=== PATIENT | female | born 1935 | race Caucasian/White ===

== ENCOUNTER → 2016-07-24 | Outpatient (CLI) | payer OTHER ==
[2014-12-19 10:35] VITALS: BP 145/72
[~2016-07-24] MED LIST: CALCIUM PO; DABI150C PO; DILT240C66 PO; LEVO75TA5 PO; LISI-334 PO; MENT118G TP; MULT-245 PO
--- NOTE | 2016-07-24 12:16 | RAD ---
DATE: 07/24/2016 EXAM: DIGITAL SCREEN BILAT W/CAD HISTORY: Routine screening COMPARISON: 08/02/2015, 06/12/2012, 05/09/2009 This study was interpreted with the benefit of Computerized Aided Detection (CAD). FINDINGS: There are scattered fibroglandular densities in the breasts. A marker from a previous breast biopsies again noted laterally on the left. No new or enlarging breast densities are seen. There are benign type calcifications in the breasts. There is a cluster of microcalcifications in the posterior aspect of the right breast located just superior to the midline. These have developed since 1999 and and appear to have increased in number over the interval. IMPRESSION: Right breast microcalcifications as described above. Diagnostic mammography to include magnification and straight medial lateral views is suggested for further evaluation. BI-RADS CATEGORY: 0 INCOMPLETE: NEEDS ADDITIONAL IMAGING EVALUATION AND/OR PRIOR MAMMOGRAMS FOR COMPARISON. RECOMMENDED FOLLOW-UP: ADD ADDITIONAL IMAGING PQRS compliance statement: Patient information was entered into a reminder system with a target due date for the next mammogram. Mammography is a sensitive method for finding small breast cancers, but it does not detect them all and is not a substitute for careful clinical examination. A negative mammogram does not negate a clinically suspicious finding and should not result in delay in biopsying a clinically suspicious abnormality. "Our facility is accredited by the [employer] Mammography [employer]."
== END | disposition home or self-care (01) ==
LOC: MAMMO 10:07
PROVIDERS: ATTEND Family Medicine
DX: Z12.31 Encounter for screening mammogram for malignant neoplasm of breast (principal)
CPT/HCPCS: G0202; 77067

== ENCOUNTER → 2016-07-31 | Outpatient (CLI) | payer OTHER ==
[2014-12-19 10:35] VITALS: BP 145/72
[~2016-07-31] MED LIST changes: +CHOL10002 PO; +DIGO125T10 PO; +RIVA15TA PO; +occuvite PO
--- NOTE | 2016-07-31 10:58 | RAD ---
DATE: 07/31/2016 EXAM: DIGITAL DIAGNOSTIC RT HISTORY: Suspicious screening study COMPARISON: 07/24/2016, 08/02/2015, 07/02/2013 This study was interpreted with the benefit of Computerized Aided Detection (CAD). FINDINGS: Additional views of the right breast confirm the presence of a cluster of pleomorphic microcalcifications in the posterior aspect of the right breast at approximately the 12:00 location. These are best delineated on the CC magnification view. These occur in a somewhat linear orientation. They did not appear to be related to an artery. They do not show layering on the straight mediolateral view. These have slowly progressed since previous studies. DCIS is a possibility. IMPRESSION: Suspicious cluster of right breast microcalcifications as described above. Stereotactic biopsy is suggested for further evaluation. BI-RADS CATEGORY: 4 SUSPICIOUS ABNORMALITY- BIOPSY SHOULD BE CONSIDERED RECOMMENDED FOLLOW-UP: BIO BIOPSY RECOMMENDED Note: The findings were discussed with the patient at the time of the exam and she is aware of the recommendation for biopsy. PQRS compliance statement: Patient information was entered into a reminder system with a target due date for the next mammogram. Mammography is a sensitive method for finding small breast cancers, but it does not detect them all and is not a substitute for careful clinical examination. A negative mammogram does not negate a clinically suspicious finding and should not result in delay in biopsying a clinically suspicious abnormality. "Our facility is accredited by the [employer] Mammography Program."
== END | disposition home or self-care (01) ==
LOC: MAMMO 10:23
PROVIDERS: ATTEND Family Medicine
DX: R92.8 Other abnormal and inconclusive findings on diagnostic imaging of breast (principal)
CPT/HCPCS: G0206; 77065

== ENCOUNTER → 2016-08-14 | Outpatient (CLI) | payer OTHER ==
[~2016-08-14] VITALS: Ht 157.5 cm; Wt 56.2 kg
[~2016-08-14] MED LIST changes: +LIDOCAINE 1% / SOD BICARB 8.4% 20 ML VIAL. IJ ONE; +LIDOCAINE 2%/EPI 1:100,000 20 ML VIAL. IJ ONE
[2016-08-14 08:38] VITALS: BP 172/79
--- NOTE | 2016-08-19 08:37 | PATHOLOGY ---
PATHOLOGY REPORT * * * * * * * * FINAL DIAGNOSIS: Breast tissue, right, core needle biopsy: - Fibroadenomatoid change with coarse calcifications. - No evidence of atypia or malignancy. (Please see comment) COMMENT: The case is co-reviewed with Dr. Meseret Gordon, who agrees with the diagnosis. (SKM:mark; d/t: 08/16/2016) REPORT ELECTRONICALLY SIGNED BY: Rosa Woodruff M.D. DATE/TIME: 08/19/2016 08:36 * * * * * * * * GROSS PATHOLOGY: Received in formalin labeled "Gaurav Corona, right breast tissue," are multiple needle cores of yellow-rosa fibrofatty tissue measuring 1.7 x 1.6 x 0.7 cm in aggregate dimensions. Also received is a plastic cassette containing multiple cores of yellow-rosa fibrofatty tissue measuring 2.3 x 1.2 x 0.6 cm in aggregate dimensions. The tissue in the cassette is transferred to cassette A1, and the remaining tissue is submitted in its entirety in cassette A2. The cold ischemic time is 9 minutes. The total formalin fixation time is 35 hours and 35 minutes. (KAH; 08/15/2016) INITIAL CPT CODE(S): A; 69505 Professional services performed [place] [facility] [address] Technical services performed by [facility] at [address] [place] [address]. SPECIMEN(S) RECEIVED: A.Right breast tissue CLINICAL HISTORY: Abnormal mammogram, calcifications PATIENT: GAURAV CORONA /AGE: 6 1935 (Age: 80) PATIENT #: [id number] ALT CASE #: SPECIMEN COLLECTION DATE: 08/14/2016 SPECIMEN RECEIVED DATE: 08/14/2016 [facility] - [address] [place] [address] - PHONE: [phone] * * * END OF REPORT * * *
== END | disposition home or self-care (01) ==
LOC: MAMMO 08:22
PROVIDERS: ATTEND Family Medicine
DX: R92.8 Other abnormal and inconclusive findings on diagnostic imaging of breast (principal)
CPT/HCPCS: 19085; 77022; C1713; G0206; J3490; 88305; 77065

== ENCOUNTER 2017-07-22 14:17 | Inpatient (IN) | payer OTHER ==
[2017-07-22 15:04] LABS: ADD MAN DIFF? NO
[2017-07-22 15:06] LABS: BASO % 0 % (0-3); EOS % 0 % (0-3); HEMATOCRIT 46.5 % (36.0-47.0); HEMOGLOBIN 15.7 g/dL (12.0-15.5); LYMPH # 1.1 x10^3/uL (1.0-4.8); LYMPH % 12 % (24-48); MEAN CORPUSCULAR HEMOGLOBIN 32 pg (25-35); MEAN CORPUSCULAR HGB CONC 34 g/dL (31-37); MEAN CORPUSCULAR VOLUME 95 fL (79-100); MONO # 0.5 x10^3/uL (0.0-1.1); MONO % 5 % (0-9); NEUT # 7.6 x10^3uL (1.8-7.7); NEUT % 83 % (31-73); PLATELET COUNT 160 x10^3/uL (140-400); RED BLOOD COUNT 4.92 x10^6/uL (3.50-5.40); RED CELL DISTRIBUTION WIDTH 13.8 % (11.5-14.5); WHITE BLOOD COUNT 9.2 x10^3/uL (4.0-11.0)
[2017-07-22 15:17] LABS: ANION GAP 12 (6-14); BLOOD UREA NITROGEN 18 mg/dL (7-20); BUN/CREATININE RATIO 20 (6-20); CARBON DIOXIDE 24 mmol/L (21-32); CHLORIDE 101 mmol/L (98-107); CREATININE 0.9 mg/dL (0.6-1.0); GFR 59.8; GLUCOSE 118 mg/dL (70-99); POTASSIUM 4.5 mmol/L (3.5-5.1); SODIUM 137 mmol/L (136-145)
[2017-07-22 15:22] LABS: INR 1.1 (0.8-1.1); PARTIAL THROMBOPLASTIN TIME 25 SEC (24-38); PROTHROMBIN TIME PATIENT 13.7 SEC (11.7-14.0)
[2017-07-22 15:23] LABS: ALBUMIN 4.2 g/dL (3.4-5.0); ALK PHOS 84 U/L (46-116); ALT (SGPT) 24 U/L (14-59); AST (SGOT) 26 U/L (15-37); MAGNESIUM 1.7 mg/dL (1.8-2.4); TOTAL BILIRUBIN 0.7 mg/dL (0.2-1.0); TOTAL PROTEIN 8.4 g/dL (6.4-8.2)
[2017-07-22 15:26] LABS: TROPONINI < 0.017 ng/mL (0.000-0.055)
[2017-07-22 15:28] LABS: NT-PRO BNP 811 pg/mL (0-449)
[2017-07-22 15:29] LABS: BILIRUBIN,URINE NEGATIVE (NEG); CLARITY,URINE CLEAR; COLOR,URINE YELLOW; GLUCOSE,URINE NEGATIVE (NEG); NITRITE,URINE POSITIVE (NEG); PH,URINE 5.5; PROTEIN,URINE NEGATIVE (NEG-TRACE); UROBILINOGEN,URINE 0.2 mg/dL (0.2 mg/dL)
[2017-07-22 15:37] LABS: BACTERIA,URINE MANY /HPF (0-FEW); RBC,URINE RARE /HPF (0-2); SQUAMOUS EPITHELIAL CELL,UR FEW /LPF; WBC,URINE 20-40 /HPF (0-4)
[2017-07-22] MEDS: MAGNESIUM OXIDE 400 MG TABLET PO (15:38)
[2017-07-22] MEDS ORDERED: ONDANSETRON PF 4 MG/2 ML VIAL. IV ×2 (15:45→16:00)
[2017-07-22] MEDS ORDERED: fentaNYL PF VIAL 100 MCG/2 ML VIAL IV (15:45)
[2017-07-22] MEDS ORDERED: ACETAMINOPHEN 500 MG TABLET PO (16:00)
[2017-07-22] MEDS: RIVAROXABAN 15 MG TABLET. PO ×2 (17:00→20:56)
[2017-07-22 17:17] LABS: THYROID STIM HORMONE (TSH) 0.855 uIU/mL (0.358-3.74)
[2017-07-22 17:17] LABS: FREE T4 1.34 ng/dL (0.76-1.46)
[2017-07-22] MEDS ORDERED: ANTI-COAG MONITOR BY PHARMACY. MC (17:30)
[2017-07-22 18:56] LABS: TROPONINI < 0.017 ng/mL (0.000-0.055)
[2017-07-22] MEDS: IBUPROFEN 400 MG TABLET. PO (20:55)
[2017-07-22 22:19] LABS: TROPONINI < 0.017 ng/mL (0.000-0.055)
[2017-07-23 05:39] LABS: ADD MAN DIFF? NO
[2017-07-23 05:47] LABS: BASO % 0 % (0-3); EOS % 1 % (0-3); HEMATOCRIT 40.1 % (36.0-47.0); HEMOGLOBIN 13.7 g/dL (12.0-15.5); LYMPH # 2.1 x10^3/uL (1.0-4.8); LYMPH % 45 % (24-48); MEAN CORPUSCULAR HEMOGLOBIN 32 pg (25-35); MEAN CORPUSCULAR HGB CONC 34 g/dL (31-37); MEAN CORPUSCULAR VOLUME 95 fL (79-100); MONO # 0.5 x10^3/uL (0.0-1.1); MONO % 10 % (0-9); NEUT # 2.1 x10^3uL (1.8-7.7); NEUT % 44 % (31-73); PLATELET COUNT 138 x10^3/uL (140-400); RED BLOOD COUNT 4.23 x10^6/uL (3.50-5.40); RED CELL DISTRIBUTION WIDTH 13.6 % (11.5-14.5); WHITE BLOOD COUNT 4.7 x10^3/uL (4.0-11.0)
[2017-07-23 06:05] LABS: ANION GAP 6 (6-14); BLOOD UREA NITROGEN 16 mg/dL (7-20); CALCIUM 9.1 mg/dL (8.5-10.1); CARBON DIOXIDE 26 mmol/L (21-32); CHLORIDE 107 mmol/L (98-107); GLUCOSE 87 mg/dL (70-99); POTASSIUM 4.2 mmol/L (3.5-5.1); SODIUM 139 mmol/L (136-145)
[2017-07-23] MEDS: LEVOTHYROXINE 75 MCG TABLET PO (07:30)
[2017-07-23] MEDS: CALCIUM CARBONATE 500 MG TABLET PO (07:32)
[2017-07-23] MEDS: MULTIVITAMIN I-VITE TABLET. PO (07:32)
[2017-07-23] MEDS: CHOLECALCIFEROL (VITAMIN D3) 1,000 UNIT TABLET PO (07:32)
[2017-07-23] MEDS: PNEUMOC CONJ VACC 23-VALENT 0.5 ML VIAL. VAX IM (08:11)
[2017-07-23] MEDS: DIGOXIN 125 MCG TABLET. PO (08:12)
[2017-07-23] MEDS: LISINOPRIL 20 MG TABLET PO (08:12)
[2017-07-23] MEDS: APIXABAN 2.5 MG TABLET. PO (10:56)
[2017-07-23 11:12] LABS: CHOLESTEROL 136 mg/dL (0-200); HDLC 43 mg/dL (40-60); LDLC 78 mg/dL (0-100); NON-HDL CHOLESTEROL 93 mg/dL (0-129); TRIGLYCERIDES 73 mg/dL (0-150); VLDLC 15 mg/dL (0-40)
[2017-07-23 11:15] LABS: CHOLESTEROL/HDL RATIO 3.2
[2017-07-23] MEDS: MAGNESIUM SULFATE 2GM 50 ML IV (14:02)
[2017-07-23] MEDS ORDERED: cefTRIAXone IV Push 1 GM VIAL. IVP (16:00)
== END 2017-07-23 16:57 | disposition home or self-care (01) | DRG 690 ==
LOC: ER 14:17 → 5 SOUTH 15:42
DX: N39.0 Urinary tract infection, site not specified (principal); I48.2 Chronic atrial fibrillation; R07.89 Other chest pain; E89.0 Postprocedural hypothyroidism; F41.9 Anxiety disorder, unspecified; M19.90 Unspecified osteoarthritis, unspecified site; I10 Essential (primary) hypertension; Z82.49 Family history of ischemic heart disease and other diseases of the circulatory system; Z90.710 Acquired absence of both cervix and uterus; Z90.49 Acquired absence of other specified parts of digestive tract; Z87.440 Personal history of urinary (tract) infections; Z98.49 Cataract extraction status, unspecified eye
CPT/HCPCS: 36415; 71045; 80048; 80053; 80061; 80162; 81001; 83735; 83880; 84439; 84443; 84481; 84484; 85025; 85610; 85730; 87086; 90732; 93005; 93306; J0690; J3475

== ENCOUNTER 2017-07-30 22:43 | Observation (INO) | payer OTHER ==
[2017-07-30 23:26] LABS: ADD MAN DIFF? NO
[2017-07-30 23:28] LABS: BASO % 1 % (0-3); EOS # 0.1 x10^3/uL (0.0-0.7); EOS % 1 % (0-3); HEMATOCRIT 42.6 % (36.0-47.0); HEMOGLOBIN 14.7 g/dL (12.0-15.5); LYMPH % 29 % (24-48); MEAN CORPUSCULAR HEMOGLOBIN 33 pg (25-35); MEAN CORPUSCULAR HGB CONC 35 g/dL (31-37); MEAN CORPUSCULAR VOLUME 96 fL (79-100); MONO # 0.8 x10^3/uL (0.0-1.1); MONO % 11 % (0-9); NEUT % 58 % (31-73); PLATELET COUNT 175 x10^3/uL (140-400); RED BLOOD COUNT 4.46 x10^6/uL (3.50-5.40); RED CELL DISTRIBUTION WIDTH 13.3 % (11.5-14.5); WHITE BLOOD COUNT 6.9 x10^3/uL (4.0-11.0)
[2017-07-30] MEDS ORDERED: fentaNYL PF VIAL 100 MCG/2 ML VIAL IV ×2 (23:30→23:45)
[2017-07-30 23:37] LABS: ANION GAP 10 (6-14); BLOOD UREA NITROGEN 20 mg/dL (7-20); BUN/CREATININE RATIO 17 (6-20); CALCIUM 9.4 mg/dL (8.5-10.1); CARBON DIOXIDE 27 mmol/L (21-32); CHLORIDE 103 mmol/L (98-107); CREATININE 1.2 mg/dL (0.6-1.0); GFR 42.9; GLUCOSE 114 mg/dL (70-99); INR 1.2 (0.8-1.1); POTASSIUM 4.4 mmol/L (3.5-5.1); PROTHROMBIN TIME PATIENT 14.6 SEC (11.7-14.0); SODIUM 140 mmol/L (136-145)
[2017-07-30 23:43] LABS: ALK PHOS 92 U/L (46-116); ALT (SGPT) 31 U/L (14-59); AST (SGOT) 22 U/L (15-37); LIPASE 390 U/L (73-393); MAGNESIUM 1.7 mg/dL (1.8-2.4); TOTAL BILIRUBIN 0.3 mg/dL (0.2-1.0); TOTAL PROTEIN 8.1 g/dL (6.4-8.2)
[2017-07-30] MEDS: IV NORMAL SALINE 1000ML BAG 1,000 ML IV ×2 (23:43→23:45)
[2017-07-30 23:45] LABS: TROPONINI < 0.017 ng/mL (0.000-0.055)
[2017-07-30] MEDS: ONDANSETRON PF 4 MG/2 ML VIAL. IV (23:45)
[2017-07-30] MEDS ORDERED: ONDANSETRON PF 4 MG/2 ML VIAL. IV (23:45)
[2017-07-30] MEDS ORDERED: ACETAMINOPHEN 325 MG TABLET. PO (23:45)
[2017-07-30] MEDS: ASPIRIN CHEWABLE 81 MG TABLET. PO (23:45)
[2017-07-30 23:53] LABS: CREATINE KINASE 61 U/L (26-192)
[2017-07-30 23:53] LABS: NT-PRO BNP 768 pg/mL (0-449)
[2017-07-31 00:18] LABS: BILIRUBIN,URINE NEGATIVE (NEG); CLARITY,URINE CLEAR; COLOR,URINE YELLOW; GLUCOSE,URINE NEGATIVE (NEG); NITRITE,URINE NEGATIVE (NEG); PROTEIN,URINE NEGATIVE (NEG-TRACE); UROBILINOGEN,URINE 0.2 mg/dL (0.2 mg/dL)
[2017-07-31 00:29] LABS: BACTERIA,URINE 0 /HPF (0-FEW); RBC,URINE OCC /HPF (0-2); SQUAMOUS EPITHELIAL CELL,UR FEW /LPF; WBC,URINE OCC /HPF (0-4)
[2017-07-31 04:11] LABS: ADD MAN DIFF? NO
[2017-07-31 04:40] LABS: BASO % 1 % (0-3); EOS # 0.1 x10^3/uL (0.0-0.7); EOS % 1 % (0-3); HEMATOCRIT 37.8 % (36.0-47.0); HEMOGLOBIN 12.9 g/dL (12.0-15.5); LYMPH # 1.6 x10^3/uL (1.0-4.8); LYMPH % 27 % (24-48); MEAN CORPUSCULAR HEMOGLOBIN 32 pg (25-35); MEAN CORPUSCULAR HGB CONC 34 g/dL (31-37); MEAN CORPUSCULAR VOLUME 95 fL (79-100); MONO # 0.7 x10^3/uL (0.0-1.1); MONO % 12 % (0-9); NEUT # 3.6 x10^3uL (1.8-7.7); NEUT % 59 % (31-73); PLATELET COUNT 154 x10^3/uL (140-400); RED BLOOD COUNT 3.98 x10^6/uL (3.50-5.40); RED CELL DISTRIBUTION WIDTH 13.4 % (11.5-14.5)
[2017-07-31 04:42] LABS: ANION GAP 8 (6-14); BLOOD UREA NITROGEN 17 mg/dL (7-20); CALCIUM 9.2 mg/dL (8.5-10.1); CARBON DIOXIDE 28 mmol/L (21-32); CHLORIDE 106 mmol/L (98-107); GLUCOSE 101 mg/dL (70-99); POTASSIUM 4.4 mmol/L (3.5-5.1); SODIUM 142 mmol/L (136-145)
[2017-07-31 05:03] LABS: TROPONINI < 0.017 ng/mL (0.000-0.055)
[2017-07-31 06:26] LABS: TROPONINI < 0.017 ng/mL (0.000-0.055)
[2017-07-31] MEDS: IV NORMAL SALINE 1000ML BAG 1,000 ML IV (08:55)
[2017-07-31] MEDS: NITROGLYCERIN SUBLINGUAL 0.4 MG BOTTLE OF 25. SL (08:55)
[2017-07-31] MEDS: APIXABAN 5 MG TABLET. PO (10:22)
[2017-07-31] MEDS ORDERED: ANTI-COAG MONITOR BY PHARMACY. MC (10:30)
[2017-07-31] MEDS: REGADENOSON 0.4 MG/5 ML DISP.SYRIN. IV (13:14)
[2017-07-31] MEDS: LISINOPRIL 20 MG TABLET PO (15:06)
[2017-07-31] MEDS: DIGOXIN 125 MCG TABLET. PO (15:06)
== END 2017-07-31 18:40 | disposition home or self-care (01) ==
LOC: 2 SOUTH 23:22 → ER 22:43
DX: R07.89 Other chest pain (principal); E03.9 Hypothyroidism, unspecified; I48.2 Chronic atrial fibrillation; I10 Essential (primary) hypertension; F41.9 Anxiety disorder, unspecified
CPT/HCPCS: 36415; 71045; 78452; 80048; 80053; 81001; 82553; 83690; 83735; 83880; 84484; 85025; 85610; 93005; 93017; 96360; 96361; 96374; 96375; 96376; 99285; A9500; G0378; G0379; J2785; J7030

== ENCOUNTER → 2017-09-17 | Outpatient (CLI) | payer OTHER | END | disposition home or self-care (01) | LOC: RAD 12:00 | DX: M79.602 Pain in left arm (principal); M54.9 Dorsalgia, unspecified; Z95.0 Presence of cardiac pacemaker | CPT/HCPCS: 71046 ==

== ENCOUNTER 2017-09-23 11:12 | Observation (INO) | payer OTHER ==
[2017-09-23 11:41] LABS: ADD MAN DIFF? NO
[2017-09-23 11:44] LABS: BASO # 0.1 x10^3/uL (0.0-0.2); BASO % 1 % (0-3); EOS # 0.1 x10^3/uL (0.0-0.7); EOS % 1 % (0-3); HEMATOCRIT 44.5 % (36.0-47.0); HEMOGLOBIN 15.5 g/dL (12.0-15.5); LYMPH # 1.6 x10^3/uL (1.0-4.8); LYMPH % 20 % (24-48); MEAN CORPUSCULAR HEMOGLOBIN 33 pg (25-35); MEAN CORPUSCULAR HGB CONC 35 g/dL (31-37); MEAN CORPUSCULAR VOLUME 96 fL (79-100); MONO # 0.6 x10^3/uL (0.0-1.1); MONO % 7 % (0-9); NEUT % 72 % (31-73); PLATELET COUNT 183 x10^3/uL (140-400); RED BLOOD COUNT 4.63 x10^6/uL (3.50-5.40); RED CELL DISTRIBUTION WIDTH 13.5 % (11.5-14.5); WHITE BLOOD COUNT 8.3 x10^3/uL (4.0-11.0)
[2017-09-23 11:54] LABS: ANION GAP 9 (6-14); BLOOD UREA NITROGEN 17 mg/dL (7-20); CALCIUM 10.5 mg/dL (8.5-10.1); CARBON DIOXIDE 27 mmol/L (21-32); CHLORIDE 101 mmol/L (98-107); CREATININE 0.9 mg/dL (0.6-1.0); GFR 59.8; GLUCOSE 114 mg/dL (70-99); SODIUM 137 mmol/L (136-145)
[2017-09-23 11:57] LABS: INR 1.3 (0.8-1.1); PARTIAL THROMBOPLASTIN TIME 30 SEC (24-38); PROTHROMBIN TIME PATIENT 15.4 SEC (11.7-14.0)
[2017-09-23 12:01] LABS: ALBUMIN 4.3 g/dL (3.4-5.0); ALK PHOS 82 U/L (46-116); ALT (SGPT) 27 U/L (14-59); AST (SGOT) 22 U/L (15-37); DIRECT BILIRUBIN 0.1 mg/dL (0.0-0.2); LIPASE 274 U/L (73-393); TOTAL BILIRUBIN 0.6 mg/dL (0.2-1.0); TOTAL PROTEIN 8.5 g/dL (6.4-8.2)
[2017-09-23 12:02] LABS: TROPONINI < 0.017 ng/mL (0.000-0.055)
[2017-09-23 12:09] LABS: NT-PRO BNP 1043 pg/mL (0-449)
[2017-09-23] MEDS ORDERED: ONDANSETRON PF 4 MG/2 ML VIAL. IV ×2 (12:15→15:45)
[2017-09-23] MEDS ORDERED: MORPHINE SULFATE 2 MG/ML DISP.SYRIN. IV ×2 (12:15→15:45)
[2017-09-23] MEDS ORDERED: ACETAMINOPHEN 325 MG TABLET. PO (15:45)
[2017-09-23] MEDS ORDERED: DOCUSATE SODIUM 100 MG CAPSULE. PO (15:45)
[2017-09-23] MEDS ORDERED: hydrALAZINE 20 MG/ML VIAL. IVP (15:45)
[2017-09-23] MEDS: IV NORMAL SALINE 1000ML BAG 1,000 ML IV (17:18)
[2017-09-23] MEDS: RIVAROXABAN 15 MG TABLET. PO (17:19)
[2017-09-23 18:46] LABS: TROPONINI < 0.017 ng/mL (0.000-0.055)
[2017-09-23 18:53] LABS: CKMB MASS 1.2 ng/mL (0.0-3.6); CREATINE KINASE 51 U/L (26-192)
[2017-09-23 19:36] LABS: SEDIMENTATION RATE 9 (0-25)
[2017-09-23 20:35] LABS: CREATINE KINASE 68 U/L (26-192)
[2017-09-24] MEDS: traMADol 50 MG TABLET PO (01:25)
[2017-09-24] MEDS: IV NORMAL SALINE 1000ML BAG 1,000 ML IV ×2 (02:45→17:04)
[2017-09-24 04:43] LABS: ADD MAN DIFF? NO
[2017-09-24 04:55] LABS: BASO % 1 % (0-3); EOS # 0.1 x10^3/uL (0.0-0.7); EOS % 2 % (0-3); LYMPH # 1.4 x10^3/uL (1.0-4.8); LYMPH % 29 % (24-48); MEAN CORPUSCULAR HEMOGLOBIN 33 pg (25-35); MEAN CORPUSCULAR HGB CONC 34 g/dL (31-37); MEAN CORPUSCULAR VOLUME 97 fL (79-100); MONO # 0.5 x10^3/uL (0.0-1.1); MONO % 10 % (0-9); NEUT # 2.8 x10^3uL (1.8-7.7); NEUT % 58 % (31-73); PLATELET COUNT 148 x10^3/uL (140-400); RED BLOOD COUNT 3.91 x10^6/uL (3.50-5.40); RED CELL DISTRIBUTION WIDTH 13.4 % (11.5-14.5); WHITE BLOOD COUNT 4.8 x10^3/uL (4.0-11.0)
[2017-09-24 05:18] LABS: ANION GAP 8 (6-14); BLOOD UREA NITROGEN 19 mg/dL (7-20); CALCIUM 8.5 mg/dL (8.5-10.1); CARBON DIOXIDE 25 mmol/L (21-32); CHLORIDE 107 mmol/L (98-107); GLUCOSE 83 mg/dL (70-99); POTASSIUM 3.9 mmol/L (3.5-5.1); SODIUM 140 mmol/L (136-145)
[2017-09-24 05:52] LABS: THYROID STIM HORMONE (TSH) 0.901 uIU/mL (0.358-3.74)
[2017-09-24 08:23] LABS: VITAMIN-B12 1589 pg/mL (247-911)
[2017-09-24] MEDS: DIGOXIN 125 MCG TABLET. PO (09:02)
[2017-09-24] MEDS: LEVOTHYROXINE 75 MCG TABLET PO (09:02)
[2017-09-24] MEDS: LISINOPRIL 20 MG TABLET PO (09:02)
[2017-09-24] MEDS: CHOLECALCIFEROL (VITAMIN D3) 1,000 UNIT TABLET PO (09:02)
[2017-09-24] MEDS: ANTI-COAG MONITOR BY PHARMACY. MC (12:24)
[2017-09-24] MEDS: RIVAROXABAN 15 MG TABLET. PO (17:02)
[2017-09-25] MEDS: traMADol 50 MG TABLET PO (03:19)
[2017-09-25] MEDS: LEVOTHYROXINE 75 MCG TABLET PO (08:25)
[2017-09-25] MEDS: CHOLECALCIFEROL (VITAMIN D3) 1,000 UNIT TABLET PO (08:25)
[2017-09-25] MEDS: DIGOXIN 125 MCG TABLET. PO (08:26)
[2017-09-25] MEDS: LISINOPRIL 20 MG TABLET PO (08:26)
== END 2017-09-25 14:38 | disposition home or self-care (01) ==
LOC: ER 11:12 → 5 NORTH 12:06
DX: R07.9 Chest pain, unspecified (principal); I10 Essential (primary) hypertension; N39.0 Urinary tract infection, site not specified; E03.9 Hypothyroidism, unspecified; I48.0 Paroxysmal atrial fibrillation; I49.5 Sick sinus syndrome; M19.90 Unspecified osteoarthritis, unspecified site; D64.9 Anemia, unspecified; R42 Dizziness and giddiness; Z79.01 Long term (current) use of anticoagulants; Z82.49 Family history of ischemic heart disease and other diseases of the circulatory system; Z86.73 Personal history of transient ischemic attack (TIA), and cerebral infarction without residual deficits; Z90.710 Acquired absence of both cervix and uterus; Z95.0 Presence of cardiac pacemaker
CPT/HCPCS: 36415; 70450; 71045; 80048; 80076; 82306; 82550; 82553; 82607; 83690; 83880; 84443; 84484; 85025; 85610; 85651; 85730; 86141; 93005; 96360; 96361; 97161-GP; 97165-GO; 99285-25; G0378; G0379; J7030

== ENCOUNTER → 2017-10-16 | Outpatient (CLI) | payer OTHER | END | disposition home or self-care (01) | LOC: MAMMO 12:59 | DX: Z12.31 Encounter for screening mammogram for malignant neoplasm of breast (principal) | CPT/HCPCS: 77063; 77067 ==

== ENCOUNTER 2017-12-15 22:23 | Emergency (ER) | payer OTHER ==
[~2017-12-15] VITALS: Ht 154.9 cm; Wt 49.9 kg
[~2017-12-15 22:23] MED LIST changes: +AMLO2.5T3 PO; +CEPH-264 PO; +CYCL1DRO EACHEYE; +DILT180C29 PO; -LIDOCAINE 1% / SOD BICARB 8.4% 20 ML VIAL. IJ ONE; -LIDOCAINE 2%/EPI 1:100,000 20 ML VIAL. IJ ONE
--- NOTE | 2017-12-15 23:27 | PHYS DOC ---
Past Medical History Past Medical History: A-Fib, Hypertension, Hypothyroid, Other Additional Past Medical Histor: RECTAL PROLAPSE Past Surgical History: Hysterectomy, Tonsillectomy Additional Past Surgical Histo: MASTOIDECTOMY, RECTAL, FATTY TUMOR, THYROID Alcohol Use: None Drug Use: None Adult General Chief Complaint Chief Complaint: HYPERTENSION HPI HPI Patient is a 82 year old female who presents with elevated blood pressure. She states that ever since she came off of her amlodipine (due to side effects) her blood pressure has become labile. She states that usually she can tell when her blood pressure gets elevated because she feels a warm sensation. She also states that she feels her skin throughout. She states that she has a very mild gradual onset occipital headache when this occurs. She states that this happened last week and this week. It happened this evening and her blood pressure started at 160 systolic admitted to up to 180 systolic. That's when she decided to come to the emergency department. I evaluated the triage note, however patient insists to me that she did not have dizziness, lightheadedness, chest pain, chest pressure, shortness of breath, weak legs, focal neurologic deficits, sudden onset headache, or any other symptoms. She states that she has been completely asymptomatic with her elevated blood pressure outside of the warm sensation that she describes. She has a history of implantable pacemaker, atrial fibrillation and is on digoxin as well as a novel oral anticoagulant. Review of Systems Review of Systems Constitutional: Denies fever or chills Eyes: Denies change in visual acuity, redness, or eye pain HENT: Denies nasal congestion or sore throat Respiratory: Denies cough or shortness of breath Cardiovascular: No additional information not addressed in HPI GI: Denies abdominal pain, nausea, vomiting, bloody stools or diarrhea : Denies dysuria or hematuria Musculoskeletal: Denies back pain or joint pain Integument: Denies rash or skin lesions Neurologic: Denies headache, focal weakness or sensory changes Endocrine: Denies polyuria or polydipsia All other systems were reviewed and found to be within normal limits, except as documented in this note. Family History Family History noncontributory Current Medications Current Medications digoxin, lisinopril, xarelto, diltiazem Allergies Allergies Allergies Coded Allergies Type Severity Reaction Last Updated Verified ciprofloxacin Allergy Mild 07/21/14 Yes hydrocortisone Allergy Mild 07/21/14 Yes sulfamethoxazole Allergy Mild 07/21/14 Yes trimethoprim Allergy Mild 07/21/14 Yes Physical Exam Physical Exam Constitutional: Well developed, well nourished, no acute distress, non-toxic appearance. HENT: Normocephalic, atraumatic Eyes: PERRLA, EOMI, conjunctiva normal, no discharge. Neck: Normal range of motion, trachea midline Cardiovascular:Irregular, normal peripheral perfustion Lungs & Thorax: Bilateral breath sounds clear to auscultation Abdomen: Bowel sounds normal, soft, no tenderness, no masses, no pulsatile masses. Skin: Warm, dry, no erythema, no rash. Extremities: No tenderness, no cyanosis, no clubbing, ROM intact, no edema. Neurologic: Alert and oriented X 3, normal motor function, normal sensory function, no focal deficits noted. Psychologic: Affect normal, judgement normal, mood normal. Current Patient Data Vital Signs Vital Signs Date Time Temp Pulse Resp B/P (MAP) Pulse Ox O2 Delivery O2 Flow Rate FiO2 12/15/17 22:30 98.1 80 20 184/94 (124) 96 Room Air 98.1 EKG EKG [] Radiology/Procedures Radiology/Procedures [] Impressions: Elevated blood pressure with a history of hypertension Course & Med Decision Making Course & Med Decision Making Pertinent Labs and Imaging studies reviewed. (See chart for details) Fractured diagnosis includes but not limited to: Hypertension from being off the amlodipine, end organ damage, pheochromocytoma, renal artery stenosis, metabolic abnormality Dragon Disclaimer Dragon Disclaimer This electronic medical record was generated, in whole or in part, using a voice recognition dictation system. Departure Departure Impression: Primary Impression: Elevated blood pressure reading with diagnosis of hypertension Condition: STABLE Referrals: RENO SLAUGHTER MD (PCP) LD GREEN DO Dec 15, 2017 23:27
[2017-12-16 00:13] LABS: BASO # 0.1 x10^3/uL (0.0-0.2); BASO % 1 % (0-3); EOS # 0.1 x10^3/uL (0.0-0.7); EOS % 2 % (0-3); HEMATOCRIT 45.2 % (36.0-47.0); HEMOGLOBIN 15.6 g/dL (12.0-15.5); LYMPH # 1.8 x10^3/uL (1.0-4.8); LYMPH % 31 % (24-48); MEAN CORPUSCULAR HEMOGLOBIN 33 pg (25-35); MEAN CORPUSCULAR HGB CONC 35 g/dL (31-37); MEAN CORPUSCULAR VOLUME 95 fL (79-100); MONO # 0.5 x10^3/uL (0.0-1.1); MONO % 9 % (0-9); NEUT # 3.3 x10^3uL (1.8-7.7); NEUT % 57 % (31-73); PLATELET COUNT 160 x10^3/uL (140-400); RED BLOOD COUNT 4.74 x10^6/uL (3.50-5.40); RED CELL DISTRIBUTION WIDTH 13.3 % (11.5-14.5); WHITE BLOOD COUNT 5.7 x10^3/uL (4.0-11.0)
[2017-12-16 00:31] LABS: CALCIUM 10.3 mg/dL (8.5-10.1); CREATININE 0.9 mg/dL (0.6-1.0); GFR 59.7; POTASSIUM 4.6 mmol/L (3.5-5.1)
[2017-12-16 00:35] LABS: ALBUMIN 4.4 g/dL (3.4-5.0); ALBUMIN/GLOBULIN RATIO 1.1 (1.0-1.7); TOTAL BILIRUBIN 0.4 mg/dL (0.2-1.0); TOTAL PROTEIN 8.4 g/dL (6.4-8.2)
[2017-12-16] MEDS ORDERED: hydrALAZINE 25 MG TABLET PO STA (00:45)
[2017-12-16] MEDS ORDERED: LISI10TA2 PO (00:49)
[2017-12-16 01:07] VITALS: BP 178/80
[2017-12-16] MEDS: LISINOPRIL 10 MG TABLET PO ONE (01:07)
--- NOTE | 2017-12-16 06:49 | EKG ---
[facility] [address] [place] [address] Test Date: 2017-12-15 Test Time: 23:42:46 Pat Name: JOSEPHINE CORONA Department: Room: Gender: F [employer] Operator: : 1935 Requested By: LD GREEN Order Number: [id number] Reading MD: Jose Elias Hall Measurements Intervals [place] Rate: 81 P: ID: QRS: -77 QRSD: 148 T: 96 QT: 386 QTc: 454 Interpretive Statements VENTRICULAR PACED RHYTHM UNDERLYING RHYTHM ATRIAL FIBRILLATION Electronically Signed On 12-16-2017 16:30:52 CDT by Jose Elias Hall
== END 2017-12-16 01:30 | disposition home or self-care (01) ==
LOC: ER 22:23
DX: I10 Essential (primary) hypertension (principal); I48.91 Unspecified atrial fibrillation; E03.9 Hypothyroidism, unspecified; Z88.1 Allergy status to other antibiotic agents; Z88.2 Allergy status to sulfonamides; Z88.8 Allergy status to other drugs, medicaments and biological substances
CPT/HCPCS: 36415; 80053; 84484; 85025; 93005; 99285-25

== ENCOUNTER → 2018-11-12 | Outpatient (CLI) | payer OTHER ==
[~2018-11-12] MED LIST changes: -AMLO2.5T3 PO; +AMLO2.5T5 PO; +LISI10TA2 PO
--- NOTE | 2018-11-12 15:28 | RAD ---
DATE: 11/12/2018 EXAM: MAMMO SHANAE SCREENING BILATERAL HISTORY: Routine screening COMPARISON: 07/24/2016, 10/16/2017 mammographic exams This study was interpreted with the benefit of Computerized Aided Detection (CAD). Breast Density: SCATTERED The breast parenchyma shows scattered fibroglandular densities. Breast parenchyma level B. FINDINGS: Biopsy clip marker involving the right upper central breast noted. Asymmetry is present inferior to the marker in the interval. Additional biopsy clip marker at the left upper outer breast is present. No suspicious calcifications, masses, or distortion in the interval. IMPRESSION: New asymmetry inferior to the right biopsy clip marker. Spot compression recommended. BI-RADS CATEGORY: 0 INCOMPLETE: NEEDS ADDITIONAL IMAGING EVALUATION AND/OR PRIOR MAMMOGRAMS FOR COMPARISON. RECOMMENDED FOLLOW-UP: ADD ADDITIONAL IMAGING PQRS compliance statement: Patient information was entered into a reminder system with a target due date pending biopsy results for the next mammogram. Mammography is a sensitive method for finding small breast cancers, but it does not detect them all and is not a substitute for careful clinical examination. A negative mammogram does not negate a clinically suspicious finding and should not result in delay in biopsying a clinically suspicious abnormality. "Our facility is accredited by the [employer] Mammography Program."
== END | disposition home or self-care (01) ==
LOC: MAMMO 10:19
PROVIDERS: ATTEND Family Medicine
DX: Z12.31 Encounter for screening mammogram for malignant neoplasm of breast (principal); N64.89 Other specified disorders of breast
CPT/HCPCS: 77063; 77067

== ENCOUNTER → 2018-11-23 | Outpatient (CLI) | payer OTHER ==
--- NOTE | 2018-11-23 10:19 | RAD ---
DATE: 11/23/2018. EXAM: DIGITAL DIAGNOSTIC RT, BREAST RIGHT HISTORY: Callback. COMPARISON: Previous mammogram from 11/12/2018. This study was interpreted with the benefit of Computerized Aided Detection (CAD). FINDINGS: Breast Density: SCATTERED The breast parenchyma shows scattered fibroglandular densities. Breast parenchyma level B. Persistent asymmetry seen adjacent to the biopsy clip in the right breast along the posterior nipple line. IMPRESSION: Asymmetry in the right breast. Please see ultrasound report from the same day. ULTRASOUND: Limited right breast ultrasound the region of biopsy clip. FINDINGS: No suspicious cystic or solid lesion seen in the interrogated right breast. BI-RADS CATEGORY: 3 PROBABLE BENIGN FINDING(S-SHORT INTERVAL FOLLOW-UP SUGGESTED RECOMMENDED FOLLOW-UP: 6M 6 MONTH FOLLOW-UP PQRS compliance statement: Patient information was entered into a reminder system with a target due date for the next mammogram. Mammography is a sensitive method for finding small breast cancers, but it does not detect them all and is not a substitute for careful clinical examination. A negative mammogram does not negate a clinically suspicious finding and should not result in delay in biopsying a clinically suspicious abnormality. "Our facility is accredited by the [employer] Mammography Program."
== END | disposition home or self-care (01) ==
LOC: MAMMO 09:14
PROVIDERS: ATTEND Family Medicine
DX: R92.8 Other abnormal and inconclusive findings on diagnostic imaging of breast (principal)
CPT/HCPCS: 76641; 77065

== ENCOUNTER → 2019-01-08 | Outpatient (CLI) | payer OTHER ==
--- NOTE | 2019-01-08 15:27 | CARD ---
MR#: [id number] Date of Study: 01/08/2019 Ordering Physician: FELISHA RILEY, Referring Physician: FELISHA RILEY Tech: Lashonda Ruiz RDCS APPROVED REPORT EXAM: Two-dimensional and M-mode echocardiogram with Doppler and color Doppler. Other Information Quality : AverageHR: 74bpm Rhythm : Atrial Fibrillation INDICATION Atrial Fibrillation 2D DIMENSIONS RVDd2.7 (2.9-3.5cm)Left Atrium(2D)4.1 (1.6-4.0cm) IVSd0.9 (0.7-1.1cm)Aortic Root(2D)2.8 (2.0-3.7cm) LVDd4.5 (3.9-5.9cm)LVOT Diameter1.8 (1.8-2.4cm) PWd1.0 (0.7-1.1cm)LVDs2.9 (2.5-4.0cm) FS (%) 34.9 %SV59.1 ml LVEF(%)64.3 (>50%) M-Mode DIMENSIONS Left Atrium(MM)4.07 (2.5-4.0cm)Aortic Root2.89 (2.2-3.7cm) Aortic Valve AoV Peak Rito.186.3cm/sAoV VTI34.6cm AO Peak GR.13.9mmHgLVOT Peak Rito.68.3cm/s AO Mean GR.7mmHgAVA (VMAX)0.88cm2 IMANI (VTI)0.90cm2 Mitral Valve MV E Gahurkfr85.8cm/sMV E Peak Gr.79mmHg MV DECEL [id number] A Ijkjpvwn34.9cm/s E/A Ratio3.2 Pulmonary Valve PV Peak Acqmbwui31.1cm/s Tricuspid Valve TR P. Sccacvwn242ai/sRAP WJDLWCIF5caDr TR Peak Gr.95vcYzHSMR38csVm LEFT VENTRICLE The left ventricle is normal size. There is normal left ventricular wall thickness. The left ventricu lar systolic function is normal and the ejection fraction is within normal range. The Ejection Fracti on is 60-65%. There is normal LV segmental wall motion. Transmitral Doppler flow pattern is Grade II- pseudonormal filling dynamics. RIGHT VENTRICLE The right ventricle is normal size. There is normal right ventricular wall thickness. The right ventr icular systolic function is normal. Pacer lead noted in RV/RA. ATRIA The left atrium is mildly dilated. The right atrium is moderately dilated. The interatrial septum is intact with no evidence for an atrial septal defect or patent foramen ovale as noted on 2-D or Dopple r imaging. AORTIC VALVE The aortic valve is trileaflet. The aortic valve is heavily calcified. Doppler and Color Flow reveale d trace aortic regurgitation. There is borderline valvular aortic stenosis with a maximum pressure gr adient of 14 mmHg and mean pressure gradient of 7 mmHg. There is no aortic valvular vegetation. MITRAL VALVE The mitral valve is thickened but opens well. There is no evidence of mitral valve prolapse. There is no mitral valve stenosis. Doppler and Color-flow revealed mild mitral regurgitation. TRICUSPID VALVE The tricuspid valve is normal in structure and function. Doppler and Color Flow revealed mild to mode rate tricuspid regurgitation. The PA pressure was estimated at 35 mmHg. There is no tricuspid valve p rolapse or vegetation. There is no tricuspid valve stenosis. PULMONIC VALVE Doppler and Color Flow revealed trace pulmonic valvular regurgitation. There is no pulmonic valvular stenosis. GREAT VESSELS The aortic root is normal in size. The ascending aorta is normal in size. The IVC is dilated and xu apses >50% with inspiration. PERICARDIAL EFFUSION There is no evidence of significant pericardial effusion. Critical Notification Critical Value: No <Conclusion> The left ventricular systolic function is normal and the ejection fraction is within normal range. Th e Ejection Fraction is 60-65%. Septal motion suggestive of conduction defect/paced rhythm, otherwise grossly normal. Pacer lead noted in RV/RA. The aortic valve is trileaflet. The aortic valve is heavily calcified. Doppler and Color-flow revealed mild mitral regurgitation. Doppler and Color Flow revealed mild to moderate tricuspid regurgitation. The PA pressure was estimat ed at 35 mmHg. Signed by : Rene Patrick, Electronically Approved : 01/08/2019 15:26:54
== END | disposition home or self-care (01) ==
LOC: ECHO 13:44
PROVIDERS: ATTEND Internal Medicine Cardiovascular Disease
DX: I08.3 Combined rheumatic disorders of mitral, aortic and tricuspid valves (principal); I48.21 Permanent atrial fibrillation
CPT/HCPCS: 93306

== ENCOUNTER → 2019-04-28 | Outpatient (CLI) | payer MEDICARE, OTHER ==
[2019-03-09 15:00] VITALS: BP 134/71
[~2019-04-28] MED LIST changes: +APIX5TAB PO; +DILT120C55 PO; +LEVO50TA5 PO; +PANT40TA77 PO; +VIT1TABL34 PO
--- NOTE | 2019-04-28 15:38 | RAD ---
DATE: 04/28/2019 EXAM: MAMMO SHANAE FRAN LT, BREAST LEFT HISTORY: Left breast pain for the past one week COMPARISON: 11/12/2018, 10/16/2017 mammographic exams This study was interpreted with the benefit of Computerized Aided Detection (CAD). Breast Density: SCATTERED The breast parenchyma shows scattered fibroglandular densities. Breast parenchyma level B. FINDINGS: No suspicious calcifications, masses, or distortion. Benign-appearing calcification again seen. Limited ultrasound imaging of the left breast from the 3:00 to 11:00 region was performed. Imaging of the left axilla was also performed. No mass or cyst identified. No suspicious left axillary finding. IMPRESSION: Stable BI-RADS CATEGORY: 1 NEGATIVE RECOMMENDED FOLLOW-UP: CLIN FOLLOW UP IMAGING CLINICALLY INDICATED PQRS compliance statement: Patient information was entered into a reminder system with a target due date for the next mammogram. Mammography is a sensitive method for finding small breast cancers, but it does not detect them all and is not a substitute for careful clinical examination. A negative mammogram does not negate a clinically suspicious finding and should not result in delay in biopsying a clinically suspicious abnormality. "Our facility is accredited by the [employer] Mammography Program."
== END | disposition home or self-care (01) ==
LOC: MAMMO 08:43
PROVIDERS: ATTEND Nurse Practitioner Family
DX: N64.4 Mastodynia (principal)
CPT/HCPCS: 76641; 77065; G0279; 77061

== ENCOUNTER → 2019-05-20 | Outpatient (CLI) | payer MEDICARE ==
[2019-03-09 15:00] VITALS: BP 134/71
--- NOTE | 2019-05-20 13:30 | RAD ---
DATE: May 20, 2019 EXAM: DIGITAL DIAGNOSTIC RT 3-D MAMMOGRAPHY HISTORY: Follow-up of asymmetry of the right breast from November 12, 2018. The patient just had a negative left-sided diagnostic mammogram on April 28, 2019. COMPARISON: November 12, 2018. This study was interpreted with the benefit of Computerized Aided Detection (CAD). 2-D digital mammographic views of the right breast were performed in the CC and MLO projections. 3-D digital tomosynthesis images of the right breast were performed in the CC and MLO projections and reviewed on a computer workstation. FINDINGS: Breast Density: SCATTERED The breast parenchyma shows scattered fibroglandular densities. Breast parenchyma level B.. There are no dominant suspicious masses, suspicious microcalcifications or evidence of architectural distortion. Biopsy clip is again evident within the central posterior aspect of the right breast. The previously seen asymmetry has resolved consistent with a benign finding. IMPRESSION: Benign finding of the right breast. BI-RADS CATEGORY: 2 BENIGN FINDING RECOMMENDED FOLLOW-UP: 12M 12 MONTH FOLLOW-UP PQRS compliance statement: Patient information was entered into a reminder system with a target due date May 21, 2020 for the next mammogram. Mammography is a sensitive method for finding small breast cancers, but it does not detect them all and is not a substitute for careful clinical examination. A negative mammogram does not negate a clinically suspicious finding and should not result in delay in biopsying a clinically suspicious abnormality. "Our facility is accredited by the [employer] Mammography Program." The patient's breast density may affect the ability of mammography to detect breast cancer. There are 4 categories of breast density, A, B, C and D. Breast density A means that most of the breast tissue is replaced with adipose tissue and therefore is not dense. Breast density B means that the breast tissue is mildly dense and scattered. Breast density C means that the breast tissue is heterogeneously dense. Breast density D means that the breast tissue is very dense. Breast densities especially C and D may decrease the sensitivity of mammography to detect breast cancer. Therefore, the patient may benefit from 3-D breast mammography (3D breast tomography) as a part of their screening mammogram. Insurance may or may not pay for this additional imaging. The patient's breast density based on today's mammogram is category B.
== END | disposition home or self-care (01) ==
LOC: MAMMO 12:45
PROVIDERS: ATTEND Nurse Practitioner Family
DX: R92.8 Other abnormal and inconclusive findings on diagnostic imaging of breast (principal)
CPT/HCPCS: 77065; G0279; 77061

== ENCOUNTER 2019-06-25 15:02 | Emergency (ER) | payer MEDICARE ==
[~2019-06-25] VITALS: Ht 154.9 cm; Wt 112.0 kg
--- NOTE | 2019-06-25 15:47 | PHYS DOC ---
Past Medical History Past Medical History: A-Fib, Hypertension, Hypothyroid, Other Additional Past Medical Histor: RECTAL PROLAPSE Past Surgical History: Hysterectomy, Tonsillectomy Additional Past Surgical Histo: MASTOIDECTOMY, RECTAL, FATTY TUMOR, THYROID Smoking Status: Never Smoker Alcohol Use: None Drug Use: None Adult General Chief Complaint Chief Complaint: RAPID HEART RATE HPI HPI Patient is a 83 year old female who presents with chest pain is been ongoing for 2 weeks. The patient states that over the last day she has been feeling more palpitations. The patient has a history of A. fib and is on Eliquis. She states that she has been feeling the pain all of her chest and down both arms. Complete ROS were reviewed and found to be within normal limits, except as documented in the HPI Allergies Allergies Allergies Coded Allergies Type Severity Reaction Last Updated Verified ciprofloxacin Allergy Mild 07/21/14 Yes hydrocortisone Allergy Mild 07/21/14 Yes sulfamethoxazole Allergy Mild 07/21/14 Yes trimethoprim Allergy Mild 07/21/14 Yes Physical Exam Physical Exam Constitutional: Well developed, well nourished, no acute distress, non-toxic appearance. [] HENT: Normocephalic, atraumatic, bilateral external ears normal, oropharynx moist, no oral exudates, nose normal. [] Eyes: PERRLA, EOMI, conjunctiva normal, no discharge. [] Neck: Normal range of motion, no tenderness, supple, no stridor. [] Cardiovascular:Heart rate regular rhythm, no murmur [] Lungs & Thorax: Bilateral breath sounds clear to auscultation [] Neurologic: Alert and oriented X 3, normal motor function, normal sensory function, no focal deficits noted. [] Psychologic: Affect normal, judgement normal, mood normal. [] Current Patient Data Vital Signs Vital Signs Date Time Temp Pulse Resp B/P (MAP) Pulse Ox O2 Delivery O2 Flow Rate FiO2 06/25/19 15:45 98.6 82 17 184/84 (117) 96 Room Air 98.6 Lab Values Laboratory Tests Test 06/25/19 17:00 White Blood Count 6.2 x10^3/uL (4.0-11.0) Red Blood Count 4.60 x10^6/uL (3.50-5.40) Hemoglobin 14.4 g/dL (12.0-15.5) Hematocrit 43.1 % (36.0-47.0) Mean Corpuscular Volume 94 fL (79-100) Mean Corpuscular Hemoglobin 31 pg (25-35) Mean Corpuscular Hemoglobin Concent 33 g/dL (31-37) Red Cell Distribution Width 14.3 % (11.5-14.5) Platelet Count 160 x10^3/uL (140-400) Neutrophils (%) (Auto) 69 % (31-73) Lymphocytes (%) (Auto) 24 % (24-48) Monocytes (%) (Auto) 6 % (0-9) Eosinophils (%) (Auto) 1 % (0-3) Basophils (%) (Auto) 1 % (0-3) Neutrophils # (Auto) 4.3 x10^3/uL (1.8-7.7) Lymphocytes # (Auto) 1.5 x10^3/uL (1.0-4.8) Monocytes # (Auto) 0.4 x10^3/uL (0.0-1.1) Eosinophils # (Auto) 0.0 x10^3/uL (0.0-0.7) Basophils # (Auto) 0.0 x10^3/uL (0.0-0.2) Prothrombin Time 14.9 SEC (11.7-14.0) H Prothrombin Time INR 1.2 (0.8-1.1) H Activated Partial Thromboplast Time 31 SEC (24-38) Sodium Level 143 mmol/L (136-145) Potassium Level 4.5 mmol/L (3.5-5.1) Chloride Level 104 mmol/L (98-107) Carbon Dioxide Level 28 mmol/L (21-32) Anion Gap 11 (6-14) Blood Urea Nitrogen 17 mg/dL (7-20) Creatinine 0.9 mg/dL (0.6-1.0) Estimated GFR (Cockcroft-Gault) 59.5 BUN/Creatinine Ratio 19 (6-20) Glucose Level 91 mg/dL (70-99) Calcium Level 9.4 mg/dL (8.5-10.1) Magnesium Level 1.9 mg/dL (1.8-2.4) Total Bilirubin 0.3 mg/dL (0.2-1.0) Aspartate Amino Transferase (AST) 22 U/L (15-37) Alanine Aminotransferase (ALT) 26 U/L (14-59) Alkaline Phosphatase 70 U/L (46-116) Troponin I Quantitative < 0.017 ng/mL (0.000-0.055) Total Protein 6.9 g/dL (6.4-8.2) Albumin 3.7 g/dL (3.4-5.0) Albumin/Globulin Ratio 1.2 (1.0-1.7) Digoxin Level 1.2 ng/mL (0.9-2.0) Digoxin Last Dose Date Unk Digoxin Last Dose Time Unk Laboratory Tests 06/25/19 17:00 Laboratory Tests 06/25/19 17:00 EKG EKG EKG is interpreted by Dr. Antonio. Paced rhythm with rate of 81. No STEMI noted. Radiology/Procedures Radiology/Procedures [][facility] [address] [place] [address] IMAGING REPORT Signed PATIENT: JOSEPHINE CORONA ACCOUNT: [id number] : 1935 LOCATION: ER AGE: 83 SEX: F EXAM STATUS: REG ER ORD. PHYSICIAN: DRAKE MURPHY APRN REASON: palpitations PROCEDURE: PORTABLE CHEST 1V AP chest. HISTORY: Palpitations AP view was taken of the chest. Heart size within normal limits in size. Left pacemaker is unchanged. Lungs are free of infiltrates. There is no pleural effusion. IMPRESSION: 1. No acute chest disease. Electronically signed by: Dominguez Velasco MD (06/25/2019 4:15 PM) [id number] DICTATED and SIGNED BY: DOMINGUEZ VELASCO MD DATE: 06/25/19 1615 Course & Med Decision Making Course & Med Decision Making Pertinent Labs and Imaging studies reviewed. (See chart for details) We will obtain EKG, labs, chest x-ray. We will not give aspirin as patient is already on Eliquis. Labs are unremarkable. Discussed the case with Dr. Patrick who feels this can be followed up with outpatient. An echo was done on the patient in January and she recently had a chest pain admission in March. Patient is already on Eliquis and digoxin. A. fib has intermittently been on the monitor but is rate controlled in the ER. I will discharge patient home to follow-up primary care and Dr. Patrick. Nicolas Disclaimer Nicolas Disclaimer This electronic medical record was generated, in whole or in part, using a voice recognition dictation system. Departure Departure Impression: Primary Impression: Chest pain Disposition: HOME, SELF-CARE Condition: STABLE Referrals: OPHELIA PAINTING APRN (PCP) AWAIS PATRICK MD Patient Instructions: Chest Pain (Nonspecific) Additional Instructions: Thank you for visiting [facility]. We appreciate you trusting us with your care. If any additional problems come up don't hesitate to return to visit us. Please follow up with your primary care provider so they can plan additional care if needed and know about the problem that you had. If symptoms worsen come back to the Emergency Department. Any concerning symptoms that start such as chest pain, shortness of air, weakness or numbness on one side of the body, running high fevers or any other concerning symptoms return to the ER. The HEART Score for CP Pts HEART Score for Chest Pain: HEART Score for Chest Pain Response (Comments) Value History Slighlty/Non-Suspicious 0 ECG Normal 0 Age > 65 2 Risk Factors 1 or 2 Risk Factors 1 Troponin < Normal Limit 0 Total 3 Risk Factors: Risk Factors: DM, Current or recent (<one month) smoker, HTN, HLP, family history of CAD, obesity. Risk Scores: Score 0 - 3: 2.5% MACE over next 6 weeks - Discharge Home Score 4 - 6: 20.3% MACE over next 6 weeks - Admit for Clinical Observation Score 7 - 10: 72.7% MACE over next 6 weeks - Early Invasive Strategies DRAKE MURPHY APRN Jun 25, 2019 15:47
--- NOTE | 2019-06-25 16:18 | RAD ---
AP chest. HISTORY: Palpitations AP view was taken of the chest. Heart size within normal limits in size. Left pacemaker is unchanged. Lungs are free of infiltrates. There is no pleural effusion. IMPRESSION: 1. No acute chest disease. Electronically signed by: Dominguez Velasco MD (06/25/2019 4:15 PM) [id number]
[2019-06-25 17:27] LABS: BASO % 1 % (0-3); EOS % 1 % (0-3); HEMATOCRIT 43.1 % (36.0-47.0); HEMOGLOBIN 14.4 g/dL (12.0-15.5); LYMPH # 1.5 x10^3/uL (1.0-4.8); LYMPH % 24 % (24-48); MEAN CORPUSCULAR HEMOGLOBIN 31 pg (25-35); MEAN CORPUSCULAR HGB CONC 33 g/dL (31-37); MEAN CORPUSCULAR VOLUME 94 fL (79-100); MONO # 0.4 x10^3/uL (0.0-1.1); MONO % 6 % (0-9); NEUT # 4.3 x10^3/uL (1.8-7.7); NEUT % 69 % (31-73); PLATELET COUNT 160 x10^3/uL (140-400); RED CELL DISTRIBUTION WIDTH 14.3 % (11.5-14.5); WHITE BLOOD COUNT 6.2 x10^3/uL (4.0-11.0)
[2019-06-25 17:35] LABS: PROTHROMBIN TIME PATIENT 14.9 SEC (11.7-14.0)
[2019-06-25 17:36] LABS: CALCIUM 9.4 mg/dL (8.5-10.1); CREATININE 0.9 mg/dL (0.6-1.0); GFR 59.5; POTASSIUM 4.5 mmol/L (3.5-5.1)
[2019-06-25 17:42] LABS: DIG 1.2 ng/mL (0.9-2.0)
[2019-06-25 17:43] LABS: ALBUMIN 3.7 g/dL (3.4-5.0); ALBUMIN/GLOBULIN RATIO 1.2 (1.0-1.7); TOTAL BILIRUBIN 0.3 mg/dL (0.2-1.0); TOTAL PROTEIN 6.9 g/dL (6.4-8.2)
[2019-06-25 18:27] VITALS: BP 188/88
--- NOTE | 2019-06-26 03:49 | EKG ---
[facility] [address] [place] [address] Test Date: 2019-06-25 Test Time: 15:38:19 Pat Name: JOSEPHINE CORONA Department: Room: Gender: F [employer] Member: : 1935 Requested By: DRAKE MURPHY Order Number: [id number] Reading MD: Measurements Intervals [place] Rate: 81 P: MA: QRS: -68 QRSD: 128 T: 105 QT: 352 QTc: 414 Interpretive Statements PACEMAKER SPIKES NOTED RI6.01 No previous ECG available for comparison
== END 2019-06-25 18:30 | disposition home or self-care (01) ==
LOC: ER 15:02
DX: R07.89 Other chest pain (principal); R00.2 Palpitations; M79.601 Pain in right arm; M79.602 Pain in left arm; I48.91 Unspecified atrial fibrillation; I10 Essential (primary) hypertension; E03.9 Hypothyroidism, unspecified; Z88.1 Allergy status to other antibiotic agents; Z88.2 Allergy status to sulfonamides; Z88.8 Allergy status to other drugs, medicaments and biological substances
CPT/HCPCS: 36415; 71045; 80053; 80162; 83735; 84484; 85025; 85610; 85730; 93005; 99285

== ENCOUNTER 2020-04-18 17:28 | Observation (INO) | payer MEDICARE ==
[~2020-04-18] VITALS: Ht 154.9 cm; Wt 47.5 kg
[~2020-04-18 17:28] MED LIST changes: -LISI-334 PO; +LISI10TA16 PO; -LISI10TA2 PO; +LISI20TA18 PO
[2020-04-18 20:00] VITALS: BP 89/45
[2020-04-18] MEDS ORDERED: CEPH250C PO (21:47)
[2020-04-18] MEDS ORDERED: LISI30TA4 PO (21:47)
[2020-04-18] MEDS ORDERED: cefTRIAXone IV Push 1 GM VIAL. IVP SCH (22:30)
[2020-04-18] MEDS ORDERED: IV NORMAL SALINE 1000ML BAG 1,000 ML IV SCH (22:30)
[2020-04-18 22:37] VITALS: BP 128/67
--- NOTE | 2020-04-18 23:08 | NUR ---
The patient, JOSEPHINE CORONA, 84 y/o, F admitted by ABBIE LLANOS III, DO, was given written information regarding hospital policies, unit procedures and contact persons. Patient arrived to unit at approx 2000 accompanied by [facility]. Patient A&O x4, no complaints of pain at this time, and resting comfortably on RA. VS stable, assessment complete. Valuables were checked and left with patient. Orders received from Dr. Llanos. Bed in low locked position, call light in reach, reminded patient to call for assistance. Will continue to monitor.
[2020-04-19 02:54] VITALS: BP 127/72
[2020-04-19] MEDS ORDERED: LEVOTHYROXINE 50 MCG TABLET PO SCH (06:00)
[2020-04-19 07:20] VITALS: BP 137/65
--- NOTE | 2020-04-19 07:50 | EKG ---
[facility] [address] [place] [address] Test Date: 2020-04-19 Test Time: 07:46:57 Pat Name: JOSEPHINE CORONA Department: Room: 201 1 Gender: F Acquisition Manager: MISSAEL : 1935 Requested By: ABBIE LLANOS Order Number: [id number] Reading MD: Measurements Intervals [place] Rate: 75 P: AL: QRS: -75 QRSD: 140 T: 113 QT: 382 QTc: 429 Interpretive Statements ACCELERATED JUNCTIONAL RHYTHM COMPLEX(ES) WITH ABERRANT INTRAVENTRICULAR CONDUCTION ABNORMAL LEFT AXIS DEVIATION NON SPECIFIC INTRAVENTRICULAR BLOCK QRS(T) CONTOUR ABNORMALITY CONSISTENT WITH SEPTAL INFARCT PROBABLY OLD ABNORMAL ECG RI6.02 Compared to ECG 06/25/2019 15:38:19 Accelerated junctional rhythm now present Left-axis deviation now present Myocardial infarct finding now present Ventricular-paced complex(es) or rhythm no longer present
[2020-04-19] MEDS ORDERED: DIGOXIN 125 MCG TABLET. PO SCH (09:00)
[2020-04-19] MEDS ORDERED: MULTIVITAMIN I-VITE TABLET. PO SCH (09:00)
[2020-04-19] MEDS ORDERED: LISINOPRIL 10 MG TABLET PO SCH (09:00)
[2020-04-19] MEDS ORDERED: CEPHALEXIN 250 MG CAPSULE. PO SCH (09:00)
[2020-04-19] MEDS ORDERED: CALCIUM CARBONATE 500 MG TABLET PO SCH (09:00)
[2020-04-19] MEDS ORDERED: APIXABAN 5 MG TABLET. PO SCH (09:00)
--- NOTE | 2020-04-19 09:27 | HP ---
ADMIT DATE: 04/18/2020 CHIEF COMPLAINT: Chest pain. HISTORY OF PRESENT ILLNESS: The patient is a pleasant middle-aged female who transferred last night from [facility]. She went to their Emergency Room yesterday with complaints of chest pain. She has a history of a pacemaker. She thought it might be a pacemaker, but there was some concern that she could be having an acute coronary syndrome. The patient is currently examined on the telemetry floor. PAST MEDICAL HISTORY: Permanent pacemaker, chronic anticoagulation, arrhythmias, hypertension, hypothyroidism. ALLERGIES: CIPRO, HYDROCORTISONE, SULFA. FAMILY HISTORY: Diabetes. SOCIAL HISTORY: She does not drink, smoke or take drugs. 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 MEDICATIONS: Reviewed. She is on cephalexin, Eliquis, digoxin, Cardizem, lisinopril, Synthroid, calcium, and Ocuvite. REVIEW OF SYSTEMS: GENERAL: No history of weight change, weakness or fevers. SKIN: No bruising, hair changes or rashes. EYES: No blurred, double or loss of vision. NOSE AND THROAT: No history of nosebleeds, hoarseness or sore throat. HEART: No history of palpitations, chest pain or shortness of breath on exertion. LUNGS: Denies cough, hemoptysis, wheezing or shortness of breath. GASTROINTESTINAL: Denies changes in appetite, nausea, vomiting, diarrhea or constipation. GENITOURINARY: No history of frequency, urgency, hesitancy or nocturia. NEUROLOGIC: Denies history of numbness, tingling, tremor or weakness. PSYCHIATRIC: No history of panic, anxiety or depression. ENDOCRINE: No history of heat or cold intolerance, polyuria or polydipsia. EXTREMITIES: Denies muscle weakness, joint pain, pain on walking or stiffness. PHYSICAL EXAMINATION: VITALS: Within normal limits and are stable. GENERAL: No apparent distress. Alert and oriented. HEENT: Normal cephalic atraumatic, external auditory canals are patent. EYES: Extraocular muscles are intact, pupils are equally round and reactive to light and accommodation. MUSCULOSKELETAL: Well developed, well nourished, good range of motion. ENDOCRINE: No thyromegaly was palpated. LYMPHATICS: No cervical chain or axillary nodes were noted. HEMATOPOIETIC: No bruising. NECK: Supple, no JVD, no thyromegaly was noted. LUNGS: Clear to auscultation in all lung carey without rhonchi or wheezing. HEART: RRR, S1, S2 present. Peripheral pulses intact, no obvious murmurs were noted. ABDOMEN: Soft, nontender positive bowel sounds no organomegaly, normal bowel sounds. EXTREMITIES: Without any cyanosis, clubbing, or edema. Pedal pulses intact, Homans sign is negative. NEUROLOGIC: Normal speech, normal tone. A and O x 3, moves all extremities, no obvious focal deficits. PSYCHIATRIC: Normal affect, normal mood. Stable. SKIN: No ulcerations or rashes, good skin turgor, no jaundice. VASCULAR: Good capillary refill, neurovascular bundle appears to be intact. LABORATORY DATA: Pending. ASSESSMENT AND PLAN: Chest pain, rule out coronary artery disease. The patient will be admitted. We will check serial enzymes, serial EKGs, home meds, DVT prophylaxis. Full code. Cardiac monitoring. Consult Cardiology. ABBIE LLANOS DO DR: NEYDA/maricruz JOB#: [id number] / [id number]
--- NOTE | 2020-04-19 09:33 | PDOC2 ---
LUIS MÉNDEZ TABLEAU ADMINISTRATOR 04/19/20 0933: CARDIAC CONSULT DATE OF CONSULT Date of Consult DATE: 04/19/20 TIME: 08:54 REASON FOR CONSULT Reason for Consult: Chest pain, EKG changes REFERRING PHYSICIAN Referring Physician: Tierney SOURCE Source: Chart review, Patient HISTORY OF PRESENT ILLNESS HISTORY OF PRESENT ILLNESS This is a pleasant 84 yo female admitted for complains of chest pain. Reports that this is intermittent that goes from her pacer area then goes right. Does not described it as shooting, or cramping pain but nagging at times and it does not appear to be exacerbated or relieved by anything and it just goes away. This has been on and off in the last 1-2 months. Denies any associated exertional chest pain or SOA. She does house chores including laundry and has no difficulty tolerating those activities. Denies any nausea or vomiting and no GERD symptoms. No palpitations and no frequent dizziness. However her SBP has been in the 170s at times she checks it and feels body tingling when her BP is high. She does not check her BP regularly. No recent falls or injury. She has been compliant with her medications but she does admit eating salty snacks and food. Overnight her chest pain has not recurred. Denies any recent intractable coughing or pulmonary infection. She is blaming it on a superficial chest surgery to which a tumor was removed on her chest in 05/2019. PAST MEDICAL HISTORY Cardiovascular: AFIB, HTN, Hyperlipidemia, Other (SSS) GI: Constipation, Hemorrhoids Heme/Onc: Other (chronic eliquis use) Musculoskeletal: low back pain, Osteoarthritis ENT: Sincusitis Renal/: Chronic renal insuff Endocrine: Hypothyroidism Dermatology: No pertinent hx PAST SURGICAL HISTORY Past Surgical History: Pacemaker (biotronik), Tonsillectomy, Hysterectomy, Other (mastoidectomy; thyroidectomy) FAMILY HISTORY Family History noncontributory SOCIAL HISTORY Smoke: No ALCOHOL: none Drugs: None Lives: with Family CURRENT MEDICATIONS CURRENT MEDICATIONS Current Medications Medications (Trade) Dose Ordered Sig/Roman Route PRN Reason Start Time Stop Time Status Last Admin Dose Admin Sodium Chloride 1,000 ml @ 75 mls/hr [id number] IV 04/18/20 22:30 04/18/20 22:30 Ceftriaxone Sodium (Rocephin) 1 gm Q24H IVP 04/18/20 22:30 04/18/20 22:47 Levothyroxine Sodium (Synthroid) 50 mcg DAILY06 PO 04/19/20 06:00 04/19/20 05:59 ALLERGIES ALLERGIES: Coded Allergies: ciprofloxacin (Verified Allergy, Mild, 07/21/14) CAN'T URINATE hydrocortisone (Verified Allergy, Mild, 07/21/14) CAN'T URINATE sulfamethoxazole (Verified Allergy, Mild, 07/21/14) LEG CRAMPS trimethoprim (Verified Allergy, Mild, 07/21/14) LEG CRAMPS ROS Review of System 14 point ROS evaluated with pertinent positives noted per HPI PHYSICAL EXAM General: Alert, Oriented X3, Cooperative, No acute distress HEENT: Atraumatic, Mucous membr. moist/pink Lungs: Clear to auscultation, Normal air movement Heart: Other (Intermittent pacing with underlying AFIB) Abdomen: Soft, No tenderness Extremities: No cyanosis, No edema Skin: No breakdown, No significant lesion Neuro: Normal speech, Sensation intact Psych/Mental Status: Mental status NL, Mood NL MUSCULOSKELETAL: Osteoarthritic changes both hands VITALS/I&O VITALS/I&O: Vital Signs Date Time Temp Pulse Resp B/P (MAP) Pulse Ox O2 Delivery O2 Flow Rate FiO2 04/19/20 07:30 Room Air 04/19/20 07:20 98.1 76 16 137/65 (89) 98 98.1 I & O 04/18/20 04/18/20 04/19/20 15:00 23:00 07:00 Intake Total 220 ml Balance 220 ml ECHOCARDIOGRAM ECHOCARDIOGRAM <Conclusion> The left ventricular systolic function is normal and the ejection fraction is within normal range. The Ejection Fraction is 60-65%. Septal motion suggestive of conduction defect/paced rhythm, otherwise grossly normal. Pacer lead noted in RV/RA. The aortic valve is trileaflet. The aortic valve is heavily calcified. Doppler and Color-flow revealed mild mitral regurgitation. Doppler and Color Flow revealed mild to moderate tricuspid regurgitation. The PA pressure was estimated at 35 mmHg. DATE: 01/08/191426 ASSESSMENT/PLAN ASSESSMENT/PLAN 1. Atypical chest pain: doubt ACS, suspect MSK. Trops nml. EKG AFIB with LV strain pattern no different from prior EKGs 2. PPM in situ: Biotronik with hx of SSS. normal device function, no significant arrhythmias 3. Permanent AFIB: rate controlled 4. HTN: labile episodes at home 5. HLP 6. Valvular insufficiency Recommendations 1. Continue digoxin, level is within range. Continue cardizem for rate control. Continue lisinopril 2. Pt is to do BID HBPM in the next 2 weeks as instructed and will modify BP meds accordingly as an outpt pending trend 3. Continue eliquis for stroke prevention 4. Will add low dose lipitor given that her LDL is still not on goal. Dietitian consult 5. TTE today. May DC this afternoon per cardiac standpoint and follow up in office on May 25 1PM with FELISHA Zamora MD 04/20/20 0538: CARDIAC CONSULT ASSESSMENT/PLAN ASSESSMENT/PLAN Patient seen and examined 04/19/20. Agree with COMMERCIAL REPRESENTATIVE's assessment and plan. CP with atypical features, reproducible and probably musculoskeletal. NM ruled out. 2D echo showed normal LVF Perm atrial fibrillation rate controlled Continue current meds including eliquis for stroke prophylaxis Recent PPM check showed normal function OK for DC from cardiac standpoint. Thank you for your consultation. LUIS MÉNDEZ APRN Apr 19, 2020 09:33 FELISHA RILEY MD Apr 20, 2020 05:38
[2020-04-19 09:49] LABS: CHOLESTEROL/HDL RATIO 3.6
[2020-04-19 11:00] VITALS: BP 170/94
--- NOTE | 2020-04-19 11:49 | DS ---
DATE OF DISCHARGE: 04/19/2020 ADMISSION DIAGNOSIS: Chest pain. DISCHARGE DIAGNOSES: Resolving atypical chest pain, history of pacemaker, chronic anticoagulation, arrhythmias, hypertension, hypothyroidism. CONSULTS: Cardiology. PROCEDURES: None. HOSPITAL COURSE: The patient is a pleasant middle-aged female who presented as a transfer with chest pain from [facility]. We admitted the patient. We consulted Cardiology. I looked at the note from them earlier today. They feel like this is probably atypical chest pain. We are checking an echo, but unless that shows anything severe, we plan to let the patient go home this afternoon. DISPOSITION: Home. ACTIVITY: As tolerated. DIET: Cardiac. MEDICATIONS: Please see the MRAD. TOTAL TIME: 31 minutes. ABBIE LLANOS DO DR: NEYDA/maricruz JOB#: [id number] / [id number]
[2020-04-19 12:00] VITALS: BP 139/77
[2020-04-19 14:33] VITALS: BP 152/65
--- NOTE | 2020-04-19 15:13 | NUR ---
SS following up with discharge planning. SS reviewed pt chart and discussed with pt RN. Pt is from home with spouse and is currently on room air. Discharge order on the chart for home with self care.
--- NOTE | 2020-04-19 17:23 | NUR ---
Discharge Note: JOSEPHINE CORONA Discharge instructions and discharge home medications reviewed with Patient and a copy given. All questions have been answered and understanding verbalized. The following instructions and handouts were given: Diet, follow up, medications, blood pressure log. Discontinued lines and drains: IV removed. No lines present at discharge. Patient discharged to Home. Left by wheelchair with her to their private vehicle.
--- NOTE | 2020-04-19 17:44 | CARD ---
MR#: [id number] Date of Study: 04/19/2020 Ordering Physician: LUIS MÉNDEZ, Referring Physician: LUIS MÉNDEZ, Tech: Yary Patton APPROVED REPORT EXAM: Two-dimensional and M-mode echocardiogram with Doppler and color Doppler. Other Information Quality : AverageHR: 68bpm INDICATION Arrhythmia Abnormal EKG Surgery/Intervention Pacemaker: 2D DIMENSIONS RVDd2.6 (2.9-3.5cm)Left Atrium(2D)3.1 (1.6-4.0cm) IVSd1.0 (0.7-1.1cm)Aortic Root(2D)2.8 (2.0-3.7cm) LVDd4.5 (3.9-5.9cm)LVOT Diameter2.0 (1.8-2.4cm) PWd0.9 (0.7-1.1cm)LVDs2.7 (2.5-4.0cm) FS (%) 40.9 %SV67.5 ml LVEF(%)71.8 (>50%) Aortic Valve AoV Peak Rito.168.7cm/sAoV VTI31.5cm AO Peak GR.11.4mmHgLVOT Peak Rito.119.3cm/s LVOT VTI 21.65cmAO Mean GR.6mmHg IMANI (VMAX)1.09ps0UIR (VTI)2.14cm2 Mitral Valve MV E Kaaasucc09.7cm/sMV DECEL [id number] MV E Mean Gr.1mmHgMV LSN78rw MVA (PHT)4.76cm2 TDI E/Lateral E'6.2E/Medial E'7.4 Pulmonary Valve PV Peak Npwdyveo47.0cm/sPV Peak Grad.4mmHg Tricuspid Valve TR P. [id number]/sRAP [id number] TR Peak Gr.26kjAqRBOC35fzQu LEFT VENTRICLE The left ventricle is normal size. There is normal left ventricular wall thickness. The left ventricu lar systolic function is normal and the ejection fraction is within normal range. The Ejection Fracti on is 55-60%. Septal motion consistent with conduction abnormality. Tissue Doppler imaging reveals mo derate left ventricular diastolic dysfunction. RIGHT VENTRICLE The right ventricle is normal size. There is normal right ventricular wall thickness. The right ventr icular systolic function is normal. There is a pacemaker lead in the right ventricle. ATRIA The left atrium is moderately dilated. The right atrium is mildly dilated. The interatrial septum is intact with no evidence for an atrial septal defect or patent foramen ovale as noted on 2-D or Dopple r imaging. AORTIC VALVE The aortic valve is thickened but opens well. Doppler and Color Flow revealed no significant aortic r egurgitation. There is no significant aortic valvular stenosis. Calculated aortic valve area is 2.15 cm2 with maximum pressure gradient of 12 mmHg and mean pressure gradient of 7 mmHg. MITRAL VALVE The mitral valve is mildly thickened. There is no evidence of mitral valve prolapse. There is no mitr al valve stenosis. Doppler and Color-flow revealed trace mitral regurgitation. TRICUSPID VALVE The tricuspid valve is normal in structure and function. Doppler and Color Flow revealed trace tricus pid regurgitation with an estimated PAP of 33 mmHg. There is no tricuspid valve stenosis. PULMONIC VALVE The pulmonic valve is not well visualized. Doppler and Color Flow revealed no pulmonic valvular regur gitation. There is no pulmonic valvular stenosis. GREAT VESSELS The aortic root is normal in size. The ascending aorta is normal in size. The IVC is normal in size a nd collapses >50% with inspiration. PERICARDIAL EFFUSION There is no evidence of significant pericardial effusion. Critical Notification Critical Value: No <Conclusion> The left ventricular systolic function is normal and the ejection fraction is within normal range. Th e Ejection Fraction is 55-60%. Septal motion consistent with conduction abnormality. There is a pacemaker lead in the right ventricle. Signed by : Rene Patrick, Electronically Approved : 04/19/2020 17:43:51
[2020-04-19] MEDS ORDERED: ATORVASTATIN CALCIUM 10 MG TABLET. PO SCH (21:00)
== END 2020-04-19 17:00 | disposition home or self-care (01) ==
LOC: INTOOBSV 20:37 → 2 NORTH 20:37
PROVIDERS: ADMIT Internal Medicine; ATTEND Internal Medicine
DX: R07.89 Other chest pain (principal); I12.9 Hypertensive chronic kidney disease with stage 1 through stage 4 chronic kidney disease, or unspecified chronic kidney disease; N18.9 Chronic kidney disease, unspecified; E03.9 Hypothyroidism, unspecified; I49.9 Cardiac arrhythmia, unspecified; R79.1 Abnormal coagulation profile; I48.21 Permanent atrial fibrillation; I49.5 Sick sinus syndrome; J32.9 Chronic sinusitis, unspecified; E78.5 Hyperlipidemia, unspecified; M19.90 Unspecified osteoarthritis, unspecified site; K64.9 Unspecified hemorrhoids; Z95.0 Presence of cardiac pacemaker; Z98.890 Other specified postprocedural states; Z79.01 Long term (current) use of anticoagulants; Z90.710 Acquired absence of both cervix and uterus; Z90.49 Acquired absence of other specified parts of digestive tract
CPT/HCPCS: 36415; 80061; 82550; 84443; 84484; 93005; 93306; 96361; 96374; G0378; G0379; J0696; J7030

== ENCOUNTER 2020-06-28 05:36 | Observation (INO) | payer MEDICARE ==
[~2020-06-28] VITALS: Ht 154.9 cm; Wt 45.8 kg
[~2020-06-28 05:36] MED LIST changes: +CEPH250C PO; +LISI30TA4 PO
--- NOTE | 2020-06-28 06:01 | RAD ---
AP chest x-ray HISTORY: Chest pain COMPARISON: Chest x-ray June 25, 2019. FINDINGS: Single lead cardiac pacemaker. Borderline cardiomegaly stable. No pneumothorax, pulmonary o pacities or pleural effusions. Bones unremarkable. IMPRESSION: No acute process. Electronically signed by: Phil Root MD (06/28/2020 5:58 AM) [facility]
--- NOTE | 2020-06-28 06:05 | EKG ---
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
[2020-06-28 06:13] LABS: BASO # 0.1 x10^3/uL (0.0-0.2); BASO % 1 % (0-3); EOS # 0.1 x10^3/uL (0.0-0.7); EOS % 1 % (0-3); HEMATOCRIT 41.2 % (36.0-47.0); HEMOGLOBIN 13.9 g/dL (12.0-15.5); LYMPH # 1.5 x10^3/uL (1.0-4.8); LYMPH % 27 % (24-48); MEAN CORPUSCULAR HEMOGLOBIN 32 pg (25-35); MEAN CORPUSCULAR HGB CONC 34 g/dL (31-37); MEAN CORPUSCULAR VOLUME 94 fL (79-100); MONO # 0.4 x10^3/uL (0.0-1.1); MONO % 7 % (0-9); NEUT # 3.4 x10^3/uL (1.8-7.7); NEUT % 63 % (31-73); PLATELET COUNT 198 x10^3/uL (140-400); RED BLOOD COUNT 4.38 x10^6/uL (3.50-5.40); RED CELL DISTRIBUTION WIDTH 13.6 % (11.5-14.5); WHITE BLOOD COUNT 5.4 x10^3/uL (4.0-11.0)
--- NOTE | 2020-06-28 06:19 | PHYS DOC ---
Past Medical History Past Medical History: A-Fib, Hypertension, Hypothyroid, Other Additional Past Medical Histor: RECTAL PROLAPSE Past Surgical History: Hysterectomy, Tonsillectomy Additional Past Surgical Histo: MASTOIDECTOMY, RECTAL, FATTY TUMOR, THYROID Smoking Status: Never Smoker Alcohol Use: None Drug Use: None General Adult EDM: Chief Complaint: CHEST PAIN HPI: HPI: Patient is a 84 year old female who was brought here by EMS from her house due to substernal chest pain that radiated to her left arm started this morning. Patient was given 320 mg aspirin and a dose of nitroglycerin by EMS on route. Patient is currently pain-free. Patient was seen at [facility] on Friday night for the same problem, work-up over there did not show any acute problem so she was discharged home. Patient was admitted here on April 19, 2020 for ch est pain, work-up including echocardiogram did not show any acute problem, echo show the following conclusion: The left ventricular systolic function is normal and the ejection fraction is within normal range. The Ejection Fraction is 55-60%. Septal motion consistent with conduction abnormality. There is a pacemaker lead in the right ventricle. Signed by : Rene Patrick, Electronically Approved : 04/19/2020 17:43:51 Patient denies any cough or fever, no COVID-19 exposure Review of Systems: Review of Systems: Constitutional: Denies fever or chills. [] Eyes: Denies change in visual acuity. [] HENT: Denies nasal congestion or sore throat. [] Respiratory: Denies cough or shortness of breath. [] Cardiovascular: Positive for chest pain, no edema. GI: Denies abdominal pain, nausea, vomiting, bloody stools or diarrhea. [] : Denies dysuria. [] Musculoskeletal: Denies back pain or joint pain. [] Integument: Denies rash. [] Neurologic: Denies headache, focal weakness or sensory changes. [] Endocrine: Denies polyuria or polydipsia. [] Lymphatic: Denies swollen glands. [] Psychiatric: Denies depression or anxiety. [] Heart Score: C/O Chest Pain: Yes HEART Score for Chest Pain: HEART Score for Chest Pain Response (Comments) Value History Moderately Suspicious 1 Age > 65 2 Risk Factors >3 Risk Factors or Hx CAD 2 Troponin < Normal Limit 0 Total 5 Risk Factors: Risk Factors: DM, Current or recent (<one month) smoker, HTN, HLP, family history of CAD, obesity. Risk Scores: Score 0 - 3: 2.5% MACE over next 6 weeks - Discharge Home Score 4 - 6: 20.3% MACE over next 6 weeks - Admit for Clinical Observation Score 7 - 10: 72.7% MACE over next 6 weeks - Early Invasive Strategies Allergies: Allergies: Allergies Coded Allergies Type Severity Reaction Last Updated Verified ciprofloxacin Allergy Mild 07/21/14 Yes hydrocortisone Allergy Mild 07/21/14 Yes sulfamethoxazole Allergy Mild 07/21/14 Yes trimethoprim Allergy Mild 07/21/14 Yes Physical Exam: PE: Constitutional: Well developed, well nourished, no acute distress, non-toxic appearance. [] HENT: Normocephalic, atraumatic, bilateral external ears normal, oropharynx moist, no oral exudates, nose normal. [] Eyes: PERRLA, EOMI, conjunctiva normal, no discharge. [] Neck: Normal range of motion, no tenderness, supple, no stridor. [] Cardiovascular:Heart rate regular rhythm, no murmur [] Lungs & Thorax: Bilateral breath sounds clear to auscultation [] Abdomen: Bowel sounds normal, soft, no tenderness, no masses, no pulsatile masses. [] Skin: Warm, dry, no erythema, no rash. [] Back: No tenderness, no CVA tenderness. [] Extremities: No tenderness, no cyanosis, no clubbing, ROM intact, no edema. [] Neurologic: Alert and oriented X 3, normal motor function, normal sensory function, no focal deficits noted. [] Psychologic: Affect normal, judgement normal, mood normal. [] Current Patient Data: Labs: Laboratory Tests Test 06/28/20 05:55 White Blood Count 5.4 x10^3/uL (4.0-11.0) Red Blood Count 4.38 x10^6/uL (3.50-5.40) Hemoglobin 13.9 g/dL (12.0-15.5) Hematocrit 41.2 % (36.0-47.0) Mean Corpuscular Volume 94 fL (79-100) Mean Corpuscular Hemoglobin 32 pg (25-35) Mean Corpuscular Hemoglobin Concent 34 g/dL (31-37) Red Cell Distribution Width 13.6 % (11.5-14.5) Platelet Count 198 x10^3/uL (140-400) Neutrophils (%) (Auto) 63 % (31-73) Lymphocytes (%) (Auto) 27 % (24-48) Monocytes (%) (Auto) 7 % (0-9) Eosinophils (%) (Auto) 1 % (0-3) Basophils (%) (Auto) 1 % (0-3) Neutrophils # (Auto) 3.4 x10^3/uL (1.8-7.7) Lymphocytes # (Auto) 1.5 x10^3/uL (1.0-4.8) Monocytes # (Auto) 0.4 x10^3/uL (0.0-1.1) Eosinophils # (Auto) 0.1 x10^3/uL (0.0-0.7) Basophils # (Auto) 0.1 x10^3/uL (0.0-0.2) Laboratory Tests 06/28/20 05:55 EKG: EKG: EKG was done at 543, heart rate 83 bpm, pacer spikes, no ST segment elevation. Radiology/Procedures: Radiology/Procedures: [] [facility] [address] [place], [place] [id number] IMAGING REPORT Signed PATIENT: JOSEPHINE CORONA ACCOUNT: [id number] : 1935 LOCATION: ER AGE: 84 SEX: F EXAM STATUS: REG ER ORD. PHYSICIAN: DRAKE LAKHANI DO REASON: chest pain PROCEDURE: PORTABLE CHEST 1V AP chest x-ray HISTORY: Chest pain COMPARISON: Chest x-ray June 25, 2019. FINDINGS: Single lead cardiac pacemaker. Borderline cardiomegaly stable. No pneumothorax, pulmonary opacities or pleural effusions. Bones unremarkable. IMPRESSION: No acute process. Electronically signed by: Leslie Root MD (06/28/2020 5:58 AM) [facility] [place] DICTATED and SIGNED BY: LESLIE ROOT MD DATE: 06/28/20 [id number] 0 Course & Med Decision Making: Course & Med Decision Making Pertinent Labs and Imaging studies reviewed. (See chart for details) Patient is an 84-year-old female who was brought here by EMS from home due to chest pain, cardiac enzyme came back normal so far, patient is pain-free after nitroglycerin. Patient will be admitted to hospital for further evaluation and treatment, discussed with hospitalist, Dr. Acosta who agreed to admit the patient Dragon Disclaimer: Nicolas Disclaimer: This electronic medical record was generated, in whole or in part, using a voice recognition dictation system. Departure Departure Impression: Primary Impression: Chest pain Disposition: ADMITTED INPT THIS HOSP Admitting Physician: CESARIO Condition: STABLE Referrals: OPHELIA PAINTING APRN (PCP) KENROY SANDY DO Jun 28, 2020 06:19
[2020-06-28 06:31] LABS: CALCIUM 9.1 mg/dL (8.5-10.1); CREATININE 0.9 mg/dL (0.6-1.0); GFR 59.4; POTASSIUM 4.8 mmol/L (3.5-5.1)
[2020-06-28 06:37] LABS: ALBUMIN 3.7 g/dL (3.4-5.0); ALBUMIN/GLOBULIN RATIO 1.2 (1.0-1.7); TOTAL BILIRUBIN 0.5 mg/dL (0.2-1.0); TOTAL PROTEIN 6.9 g/dL (6.4-8.2)
[2020-06-28 06:46] LABS: PROTHROMBIN TIME PATIENT 13.8 SEC (11.7-14.0)
[2020-06-28 07:17] LABS: BILIRUBIN,URINE NEGATIVE (NEG); CLARITY,URINE CLOUDY; COLOR,URINE YELLOW; NITRITE,URINE POSITIVE (NEG); PH,URINE 5.5 (<5.0-8.0); PROTEIN,URINE NEGATIVE (NEG-TRACE); UROBILINOGEN,URINE 0.2 mg/dL (0.2 mg/dL)
[2020-06-28 07:42] LABS: BACTERIA,URINE MANY /HPF (0-FEW); RBC,URINE FIELD OBSCURED /HPF (0-2); WBC,URINE TNTC /HPF (0-4)
[2020-06-28 08:09] VITALS: BP 166/88
[2020-06-28] MEDS ORDERED: CEPH250C PO (09:24)
[2020-06-28] MEDS ORDERED: APIXABAN 5 MG TABLET. PO SCH (10:00)
[2020-06-28] MEDS ORDERED: SENNOSIDES 8.6 MG TABLET PO PRN (10:15)
[2020-06-28] MEDS ORDERED: ONDANSETRON PF 4 MG/2 ML VIAL. IVP PRN (10:15)
[2020-06-28] MEDS ORDERED: ACETAMINOPHEN 325 MG TABLET. PO PRN (10:15)
[2020-06-28] MEDS ORDERED: DOCUSATE SODIUM 100 MG CAPSULE. PO PRN (10:15)
[2020-06-28] MEDS ORDERED: DEXTROSE 50% 25 GM / 50ML DISP.SYRIN. IV PRN (10:15)
[2020-06-28] MEDS ORDERED: LEVOTHYROXINE 50 MCG TABLET PO SCH (10:30)
[2020-06-28] MEDS ORDERED: LISINOPRIL 10 MG TABLET PO SCH (10:30)
[2020-06-28 11:08] VITALS: BP 157/76
--- NOTE | 2020-06-28 11:31 | PDOC2 ---
LUIS MÉNDEZ CASH POSTING REPRESENTATIVE 06/28/20 1131: CARDIAC CONSULT DATE OF CONSULT Date of Consult DATE: 06/28/20 TIME: 11:16 REASON FOR CONSULT Reason for Consult: Chest pain REFERRING PHYSICIAN Referring Physician: Dave SOURCE Source: Chart review, Patient HISTORY OF PRESENT ILLNESS HISTORY OF PRESENT ILLNESS This is a pleasant 84 yo female admitted for complains of chest pain. Reports that his is stingy left chest with some throbbing to left arm. No associated, nausea, vomiting, jaw tightness. He has a basement with full stairs and denies any FERMIN or exertional CP when using the stairs. No intractable coughing and no falls or injury. No fever or chills. Sometimes she feels that her heart is pounding but no palpitations. His pain lasted about 15 minutes and has not recurred since then. That area where her pain is is tender with palpation.Shesleeps side lying as well and this pain started last night. Again denies any SOA, indigestion or heartburn. PAST MEDICAL HISTORY Cardiovascular: AFIB, HTN, Other (SSS/tachy jason syndrome; leg edema) Pulmonary: No pertinent hx CENTRAL NERVOUS SYSTEM: Other (No pertinent history) GI: Constipation, Hemorrhoids Hepatobiliary: No pertinent hx Psych: No pertinent hx Musculoskeletal: Osteoarthritis Rheumatologic: No pertinent hx Infectious disease: No pertinent hx ENT: No pertinent hx Renal/: UTI (chronic ) Endocrine: Hypothyroidism Dermatology: No pertinent hx PAST SURGICAL HISTORY Past Surgical History: Pacemaker, Tonsillectomy, Hysterectomy, Other (mastoidectomy; thyroidectomy; rectal prolapse repair) FAMILY HISTORY Family History noncontributory to CV SOCIAL HISTORY Smoke: No ALCOHOL: none Drugs: None Lives: with Family CURRENT MEDICATIONS CURRENT MEDICATIONS Current Medications Medications (Trade) Dose Ordered Sig/Roman Route PRN Reason Start Time Stop Time Status Last Admin Dose Admin Apixaban (Eliquis) 5 mg BID PO 06/28/20 10:00 06/28/20 10:27 Levothyroxine Sodium (Synthroid) 50 mcg DAILY PO 06/28/20 10:30 06/28/20 10:27 Diltiazem HCl (Cardizem 24hr Cd) 120 mg DAILY PO 06/28/20 10:30 06/28/20 10:26 Lisinopril (Prinivil) 30 mg DAILY PO 06/28/20 10:30 06/28/20 10:27 ALLERGIES ALLERGIES: Coded Allergies: ciprofloxacin (Verified Allergy, Mild, 07/21/14) CAN'T URINATE hydrocortisone (Verified Allergy, Mild, 07/21/14) CAN'T URINATE sulfamethoxazole (Verified Allergy, Mild, 07/21/14) LEG CRAMPS trimethoprim (Verified Allergy, Mild, 07/21/14) LEG CRAMPS ROS Review of System 14 point ROS evaluated with pertinent positives noted per HPI PHYSICAL EXAM General: Alert, Oriented X3, Cooperative, No acute distress HEENT: Atraumatic, Mucous membr. moist/pink Lungs: Clear to auscultation, Normal air movement Heart: Normal S1, Normal S2, Other (Paced with underlying AFIB) Abdomen: Soft Extremities: No cyanosis, Other (2+ bilateral LE pitting edema) Skin: No breakdown, No significant lesion Neuro: Normal speech, Sensation intact Psych/Mental Status: Mental status NL, Mood NL MUSCULOSKELETAL: Osteoarthritic changes both hands VITALS/I&O VITALS/I&O: Vital Signs Date Time Temp Pulse Resp B/P (MAP) Pulse Ox O2 Delivery O2 Flow Rate FiO2 06/28/20 11:08 97.9 18 157/76 (103) 98 Room Air 97.9 06/28/20 10:27 97 LABS Lab: Laboratory Tests Test 06/28/20 05:55 06/28/20 06:30 06/28/20 07:09 06/28/20 08:46 White Blood Count 5.4 x10^3/uL (4.0-11.0) Red Blood Count 4.38 x10^6/uL (3.50-5.40) Hemoglobin 13.9 g/dL (12.0-15.5) Hematocrit 41.2 % (36.0-47.0) Mean Corpuscular Volume 94 fL (79-100) Mean Corpuscular Hemoglobin 32 pg (25-35) Mean Corpuscular Hemoglobin Concent 34 g/dL (31-37) Red Cell Distribution Width 13.6 % (11.5-14.5) Platelet Count 198 x10^3/uL (140-400) Neutrophils (%) (Auto) 63 % (31-73) Lymphocytes (%) (Auto) 27 % (24-48) Monocytes (%) (Auto) 7 % (0-9) Eosinophils (%) (Auto) 1 % (0-3) Basophils (%) (Auto) 1 % (0-3) Neutrophils # (Auto) 3.4 x10^3/uL (1.8-7.7) Lymphocytes # (Auto) 1.5 x10^3/uL (1.0-4.8) Monocytes # (Auto) 0.4 x10^3/uL (0.0-1.1) Eosinophils # (Auto) 0.1 x10^3/uL (0.0-0.7) Basophils # (Auto) 0.1 x10^3/uL (0.0-0.2) Sodium Level 139 mmol/L (136-145) Potassium Level 4.8 mmol/L (3.5-5.1) Chloride Level 104 mmol/L (98-107) Carbon Dioxide Level 26 mmol/L (21-32) Anion Gap 9 (6-14) Blood Urea Nitrogen 23 mg/dL (7-20) H Creatinine 0.9 mg/dL (0.6-1.0) Estimated GFR (Cockcroft-Gault) 59.4 BUN/Creatinine Ratio 26 (6-20) H Glucose Level 103 mg/dL (70-99) H Calcium Level 9.1 mg/dL (8.5-10.1) Magnesium Level 2.0 mg/dL (1.8-2.4) Total Bilirubin 0.5 mg/dL (0.2-1.0) Aspartate Amino Transferase (AST) 24 U/L (15-37) Alanine Aminotransferase (ALT) 24 U/L (14-59) Alkaline Phosphatase 71 U/L (46-116) Troponin I Quantitative < 0.017 ng/mL (0.000-0.055) < 0.017 ng/mL (0.000-0.055) AI-Xat-J-Type Natriuretic Peptide 871 pg/mL (0-449) H Total Protein 6.9 g/dL (6.4-8.2) Albumin 3.7 g/dL (3.4-5.0) Albumin/Globulin Ratio 1.2 (1.0-1.7) Lipase 358 U/L (73-393) Prothrombin Time 13.8 SEC (11.7-14.0) Prothrombin Time INR 1.1 (0.8-1.1) Activated Partial Thromboplast Time 24 SEC (24-38) Urine Collection Type Void Urine Color Yellow Urine Clarity Cloudy Urine pH 5.5 (<5.0-8.0) Urine Specific [place] 1.010 (1.000-1.030) Urine Protein Negative mg/dL (NEG-TRACE) Urine Glucose (UA) Negative mg/dL (NEG) Urine Ketones (Stick) Negative mg/dL (NEG) Urine Blood Small (NEG) Urine Nitrite Positive (NEG) Urine Bilirubin Negative (NEG) Urine Urobilinogen Dipstick 0.2 mg/dL (0.2 mg/dL) Urine Leukocyte Esterase Large (NEG) Urine RBC Field obscured /HPF (0-2) Urine WBC Tntc /HPF (0-4) Urine Squamous Epithelial Cells Few /LPF Urine Bacteria Many /HPF (0-FEW) Urine Mucus Slight /LPF Laboratory Tests 06/28/20 05:55 Laboratory Tests 06/28/20 05:55 ECHOCARDIOGRAM ECHOCARDIOGRAM <Conclusion> The left ventricular systolic function is normal and the ejection fraction is within normal range. The Ejection Fraction is 55-60%. Septal motion consistent with conduction abnormality. There is a pacemaker lead in the right ventricle. DATE: 04/19/20 [id number] 0 ASSESSMENT/PLAN ASSESSMENT/PLAN 1. Atypical Chest pain: noncardiac, likely MSK impingement? 2. HTN urgency: noted SBP at home at times at 175 3. Acquired hypothyroidism: on replacement 4. Chronic AFIB: rate controlled 5. Chronic UTI: positive for pyuria, per PCP 6. 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 Recommendations 1. May need to see urologist, in regards to chronic UTI and chronic keflex use. Send for culture to note any resistance, defer to PCP 2. No further cardiac workup. Could potentially DC this afternoon 3. Restart home BP med namely lisinopril and cardizem and if BP trend remains elevated then will adjust. HBPM and to call if outside parameter discussed 4. Continue digoxin. will obtain dig level. Eliquis for stroke prevention FELISHA RILEY MD 06/29/20 0949: CARDIAC CONSULT ASSESSMENT/PLAN ASSESSMENT/PLAN Patient seen and examined 06/28/2020. Agree with NEWSPAPER JOURNALIST's assessment and plan. Chest pain with atypical features and most probably musculoskeletal. Myocardial infarction has been ruled out. Recent 2D echo showed normal LV systolic function. Permanent atrial fibrillation rate controlled. Recent pacemaker check showed normal function. Blood pressure better controlled since admission. Continue Eliquis for stroke prophylaxis. Follow-up with our office as scheduled LUIS MÉNDEZ APRN Jun 28, 2020 11:31 FELISHA RILEY MD Jun 29, 2020 09:49
[2020-06-28 11:55] LABS: DIG 0.8 ng/mL (0.9-2.0)
[2020-06-28 14:40] VITALS: BP 129/65
--- NOTE | 2020-06-28 15:56 | PDOC1 ---
History and Physical Date of Service: DOS: DATE: 06/28/20 TIME: 15:49 Chief Complaint: Chief Complain: Chest pain History of Present Illness: HPI: 84 year old female who was brought here by EMS from her house due to substernal chest pain that radiated to her left arm started this morning. Patient stated that this occurred while she was sleeping and she did try a dose of aspirin which subsided her pain for some time. However her chest pain returned and she called EMS at the time. Patient was given 320 mg aspirin and a dose of nitroglycerin by EMS on route. Patient is currently pain-free and her chest pain is nonreproducible upon palpation.. Patient was seen at [facility] on Friday night for the same problem, work-up over there did not show any acute problem so she was discharged home. Patient was admitted here on April 19, 2020 for chest pain, work-up including echocardiogram did not show any acute problem, echo show the following conclusion: Upon chart review, the left ventricular systolic function is normal and the ejection fraction is within normal range. The Ejection Fraction is 55-60%. Septal motion consistent with conduction abnormality. There is a pacemaker lead in the right ventricle. Past Medical/Surgical History: PMH/PSH: Past Medical History: A-Fib, Hypertension, Hypothyroid, RECTAL PROLAPSE, chronic UTI Past Surgical History: Hysterectomy, Tonsillectomy, MASTOIDECTOMY, RECTAL, FATTY TUMOR, THYROID Allergies: Allergies: Coded Allergies: ciprofloxacin (Verified Allergy, Mild, 07/21/14) CAN'T URINATE hydrocortisone (Verified Allergy, Mild, 07/21/14) CAN'T URINATE sulfamethoxazole (Verified Allergy, Mild, 07/21/14) LEG CRAMPS trimethoprim (Verified Allergy, Mild, 07/21/14) LEG CRAMPS Family History: Family History: Reviewed with no relevant findings Social History: Social History: Smoking Status: Never Smoker Alcohol Use: None Drug Use: None Current Medications: Current Medications Current Medications Apixaban (Eliquis) 5 mg BID PO Last administered on 06/28/20at 10:27; Start 06/28/20 at 10:00 Levothyroxine Sodium (Synthroid) 50 mcg DAILY PO Last administered on 06/28/20at 10:27; Start 06/28/20 at 10:30 Diltiazem HCl (Cardizem 24hr Cd) 120 mg DAILY PO Last administered on 06/28/20at 10:26; Start 06/28/20 at 10:30 Lisinopril (Prinivil) 30 mg DAILY PO Last administered on 06/28/20at 10:27; Start 06/28/20 at 10:30 Sennosides (Senna) 17.2 mg PRN BID PRN PO CONSTIPATION; Start 06/28/20 at 10:15 Docusate Sodium (Colace) 100 mg PRN DAILY PRN PO HARD STOOLS; Start 06/28/20 at 10:15 Ondansetron HCl (Zofran) 4 mg PRN Q6HRS PRN IVP NAUSEA/VOMITING; Start 06/28/20 at 10:15 Dextrose (Dextrose 50%-Water Syringe) 12.5 gm PRN Q15MIN PRN IV SEE COMMENTS; Start 06/28/20 at 10:15 Acetaminophen (Tylenol) 650 mg PRN Q4HRS PRN PO TEMP OVER 100.4F OR MILD PAIN; Start 06/28/20 at 10:15 Active Scripts Active Reported Cephalexin 250 Mg Capsule 250 Mg PO DAILY Lisinopril 30 Mg Tablet 30 Mg PO DAILY Diltiazem 24Hr ER (Xr) (Diltiazem HCl) 120 Mg Cap.er.deg 120 Mg PO DAILY Eliquis (Apixaban) 5 Mg Tablet 15 Mg PO BID Levothyroxine Sodium 50 Mcg Tablet 1 Tab PO DAILY Digox (Digoxin) 125 Mcg Tablet 125 Mcg PO DAILY [occuvite] 1 Tab PO DAILY [Calcium ] 600 Mg PO DAILY ROS: Review of Systems Review of System REVIEW OF SYSTEMS: GENERAL: Denies weakness SKIN: No bruising, hair changes or rashes. EYES: No blurred, double or loss of vision. NOSE AND THROAT: No history of nosebleeds, hoarseness or sore throat. HEART: No history of palpitations, chest pain or shortness of breath on exertion. LUNGS: Denies cough, hemoptysis, wheezing or shortness of breath. GASTROINTESTINAL: Denies changes in appetite, nausea, vomiting, diarrhea or constipation. GENITOURINARY: No history of frequency, urgency, hesitancy or nocturia. NEUROLOGIC: Denies history of numbness, tingling, or tremor. PSYCHIATRIC: No history of panic, anxiety or depression. ENDOCRINE: No history of heat or cold intolerance, polyuria or polydipsia. EXTREMITIES: Denies joint pain, pain on walking or stiffness. Physical Exam: Vital Signs: Vital Signs Date Time Temp Pulse Resp B/P (MAP) Pulse Ox O2 Delivery O2 Flow Rate FiO2 06/28/20 14:40 98.0 62 18 129/65 (86) 98 Room Air 98.0 Physcial Exam: GEN: No apparent distress. Alert and oriented HEENT: Normal cephalic, atraumatic, external auditory canals are patent EYES: Extraocular muscles are intact, pupil are equally round and reactive to light and accommodation MUSCULOSKELETAL: Well developed , well nourished, good range of motion ENDOCRINE: No thyromegaly was palpated LYMPHATICS: No cervical chain or axillary nodes were noted HEMATOPOIETIC: No bruising NECK: Supple, no JVD, no thyromegaly was noted LUNGS: Clear to auscultation in all lung carey without rhonchi or wheezing HEART: RRR, S!, S2 present. Peripheral pulses intact, no obvious murmurs noted ABDOMEN: Soft, nontender. Positive bowel sounds, no organomegaly, normal bowel sounds EXTREMITIES: Without clubbing, cyanosis, or edema. Pedal pulses intact. Negative Homans sign NEUROLOGIC: Normal speech and tone. A&O x 3, moves all extremities, no obvious focal deficits PSYCHIATRIC: Normal affect, normal mood. Stable SKIN: No ulcerations or rashes, good skin turgor, no jaundice VASCULAR: Good capillary refill, neurovascular bundle appears to be intact Labs: Labs: Laboratory Tests Test 06/28/20 05:55 06/28/20 06:30 06/28/20 07:09 06/28/20 08:46 White Blood Count 5.4 x10^3/uL (4.0-11.0) Red Blood Count 4.38 x10^6/uL (3.50-5.40) Hemoglobin 13.9 g/dL (12.0-15.5) Hematocrit 41.2 % (36.0-47.0) Mean Corpuscular Volume 94 fL (79-100) Mean Corpuscular Hemoglobin 32 pg (25-35) Mean Corpuscular Hemoglobin Concent 34 g/dL (31-37) Red Cell Distribution Width 13.6 % (11.5-14.5) Platelet Count 198 x10^3/uL (140-400) Neutrophils (%) (Auto) 63 % (31-73) Lymphocytes (%) (Auto) 27 % (24-48) Monocytes (%) (Auto) 7 % (0-9) Eosinophils (%) (Auto) 1 % (0-3) Basophils (%) (Auto) 1 % (0-3) Neutrophils # (Auto) 3.4 x10^3/uL (1.8-7.7) Lymphocytes # (Auto) 1.5 x10^3/uL (1.0-4.8) Monocytes # (Auto) 0.4 x10^3/uL (0.0-1.1) Eosinophils # (Auto) 0.1 x10^3/uL (0.0-0.7) Basophils # (Auto) 0.1 x10^3/uL (0.0-0.2) Sodium Level 139 mmol/L (136-145) Potassium Level 4.8 mmol/L (3.5-5.1) Chloride Level 104 mmol/L (98-107) Carbon Dioxide Level 26 mmol/L (21-32) Anion Gap 9 (6-14) Blood Urea Nitrogen 23 mg/dL (7-20) Creatinine 0.9 mg/dL (0.6-1.0) Estimated GFR (Cockcroft-Gault) 59.4 BUN/Creatinine Ratio 26 (6-20) Glucose Level 103 mg/dL (70-99) Calcium Level 9.1 mg/dL (8.5-10.1) Magnesium Level 2.0 mg/dL (1.8-2.4) Total Bilirubin 0.5 mg/dL (0.2-1.0) Aspartate Amino Transf (AST/SGOT) 24 U/L (15-37) Alanine Aminotransferase (ALT/SGPT) 24 U/L (14-59) Alkaline Phosphatase 71 U/L (46-116) Troponin I Quantitative < 0.017 ng/mL (0.000-0.055) < 0.017 ng/mL (0.000-0.055) IK-Diz-O-Type Natriuretic Peptide 871 pg/mL (0-449) Total Protein 6.9 g/dL (6.4-8.2) Albumin 3.7 g/dL (3.4-5.0) Albumin/Globulin Ratio 1.2 (1.0-1.7) Lipase 358 U/L (73-393) Prothrombin Time 13.8 SEC (11.7-14.0) Prothromb Time International Ratio 1.1 (0.8-1.1) Activated Partial Thromboplast Time 24 SEC (24-38) Urine Collection Type Void Urine Color Yellow Urine Clarity Cloudy Urine pH 5.5 (<5.0-8.0) Urine Specific [place] 1.010 (1.000-1.030) Urine Protein Negative mg/dL (NEG-TRACE) Urine Glucose (UA) Negative mg/dL (NEG) Urine Ketones (Stick) Negative mg/dL (NEG) Urine Blood Small (NEG) Urine Nitrite Positive (NEG) Urine Bilirubin Negative (NEG) Urine Urobilinogen Dipstick 0.2 mg/dL (0.2 mg/dL) Urine Leukocyte Esterase Large (NEG) Urine RBC Field obscured /HPF (0-2) Urine WBC Tntc /HPF (0-4) Urine Squamous Epithelial Cells Few /LPF Urine Bacteria Many /HPF (0-FEW) Urine Mucus Slight /LPF Test 06/28/20 11:23 Troponin I Quantitative < 0.017 ng/mL (0.000-0.055) Digoxin Level 0.8 ng/mL (0.9-2.0) Digoxin Last Dose Date 06/27/20 Digoxin Last Dose Time 0900 Laboratory Tests Test 06/28/20 05:55 06/28/20 06:30 06/28/20 07:09 06/28/20 08:46 White Blood Count 5.4 x10^3/uL (4.0-11.0) Red Blood Count 4.38 x10^6/uL (3.50-5.40) Hemoglobin 13.9 g/dL (12.0-15.5) Hematocrit 41.2 % (36.0-47.0) Mean Corpuscular Volume 94 fL (79-100) Mean Corpuscular Hemoglobin 32 pg (25-35) Mean Corpuscular Hemoglobin Concent 34 g/dL (31-37) Red Cell Distribution Width 13.6 % (11.5-14.5) Platelet Count 198 x10^3/uL (140-400) Neutrophils (%) (Auto) 63 % (31-73) Lymphocytes (%) (Auto) 27 % (24-48) Monocytes (%) (Auto) 7 % (0-9) Eosinophils (%) (Auto) 1 % (0-3) Basophils (%) (Auto) 1 % (0-3) Neutrophils # (Auto) 3.4 x10^3/uL (1.8-7.7) Lymphocytes # (Auto) 1.5 x10^3/uL (1.0-4.8) Monocytes # (Auto) 0.4 x10^3/uL (0.0-1.1) Eosinophils # (Auto) 0.1 x10^3/uL (0.0-0.7) Basophils # (Auto) 0.1 x10^3/uL (0.0-0.2) Sodium Level 139 mmol/L (136-145) Potassium Level 4.8 mmol/L (3.5-5.1) Chloride Level 104 mmol/L (98-107) Carbon Dioxide Level 26 mmol/L (21-32) Anion Gap 9 (6-14) Blood Urea Nitrogen 23 mg/dL (7-20) Creatinine 0.9 mg/dL (0.6-1.0) Estimated GFR (Cockcroft-Gault) 59.4 BUN/Creatinine Ratio 26 (6-20) Glucose Level 103 mg/dL (70-99) Calcium Level 9.1 mg/dL (8.5-10.1) Magnesium Level 2.0 mg/dL (1.8-2.4) Total Bilirubin 0.5 mg/dL (0.2-1.0) Aspartate Amino Transf (AST/SGOT) 24 U/L (15-37) Alanine Aminotransferase (ALT/SGPT) 24 U/L (14-59) Alkaline Phosphatase 71 U/L (46-116) Troponin I Quantitative < 0.017 ng/mL (0.000-0.055) < 0.017 ng/mL (0.000-0.055) MW-Xwi-Y-Type Natriuretic Peptide 871 pg/mL (0-449) Total Protein 6.9 g/dL (6.4-8.2) Albumin 3.7 g/dL (3.4-5.0) Albumin/Globulin Ratio 1.2 (1.0-1.7) Lipase 358 U/L (73-393) Prothrombin Time 13.8 SEC (11.7-14.0) Prothromb Time International Ratio 1.1 (0.8-1.1) Activated Partial Thromboplast Time 24 SEC (24-38) Urine Collection Type Void Urine Color Yellow Urine Clarity Cloudy Urine pH 5.5 (<5.0-8.0) Urine Specific [place] 1.010 (1.000-1.030) Urine Protein Negative mg/dL (NEG-TRACE) Urine Glucose (UA) Negative mg/dL (NEG) Urine Ketones (Stick) Negative mg/dL (NEG) Urine Blood Small (NEG) Urine Nitrite Positive (NEG) Urine Bilirubin Negative (NEG) Urine Urobilinogen Dipstick 0.2 mg/dL (0.2 mg/dL) Urine Leukocyte Esterase Large (NEG) Urine RBC Field obscured /HPF (0-2) Urine WBC Tntc /HPF (0-4) Urine Squamous Epithelial Cells Few /LPF Urine Bacteria Many /HPF (0-FEW) Urine Mucus Slight /LPF Test 06/28/20 11:23 Troponin I Quantitative < 0.017 ng/mL (0.000-0.055) Digoxin Level 0.8 ng/mL (0.9-2.0) Digoxin Last Dose Date 06/27/20 Digoxin Last Dose Time 0900 Images: Images CXR Impression: 1. No acute cardiopulmonary process. Assessment/Plan Assessment/Plan Atypical Chest pain, possible costochondritis HTN urgency with systolic blood pressures of 180 in the ED Acquired hypothyroidism: on replacement Chronic AFIB: rate controlled Chronic UTI: With many bacteria. PPM: interrogation revealed normal device, 100% afib with single chamber 70% paced no RVRs. Continue aspirin, Cardiology consulted for predischarge stress testing or left heart cath Continue nitroglycerin as needed for pain Continue beta-jon if blood pressures allow Continue high intensity statins IV morphine as needed Consider Lovenox Maintain O2 sats between 88 to 95% Trend troponins Repeat EKG in the a.m. Continue telemetry monitoring Monitor for electrolyte abnormalities Avoid NSAIDs Continue Keflex for her chronic UTI. Continue rest of her home medications. Justifications for Admission Other Justification Chest pain JANIA KINCAID MD Jun 28, 2020 15:56
--- NOTE | 2020-06-28 15:57 | DISCH ---
DISCHARGE INSTRUCTIONS Condition on Discharge Condition on Discharge: Stable Activity After Discharge Activity Instructions for Disc: Activity as tolerated Bathing Instructions: Shower-keep dressing dry, No Tub Bath until see Lifting Instructions after Dis: No heavy lifting, No pulling or pushing, Do not lift >10 pounds, Add. restrict see below Exercise Instruction after Dis: Progress as tolerated Driving Instructions after Dis: Do not drive Weight Bearing Status after Di: Partial weight bearing Diet after Discharge Diet after Discharge: Regular Diet Texture: Regular Liquid Texture: Thin Liquid Wound Incision Care Wound/Incision Care: No wound care needed Wound Care Equipment: Dressings Checks after Discharge Checks after discharge: Check blood press - daily, Check your Temp as needed Follow-Up Follow up with: PCP within 2 weeks of discharge regarding your chronic UTI Follow Up With: Cardiology as needed Treatment/Equipment after DC Adaptive Equipment Issued: None JANIA KINCAID MD Jun 28, 2020 15:57
--- NOTE | 2020-06-28 16:06 | PDOC3 ---
[facility]-Discharge Summary Date of Admission: Date of Admission: Jun 28, 2020 Date of Discharge: Date of Discharge: Jun 28, 2020 Discharge Diagnosis: Discharge Diagnosis: 1. Atypical Chest pain: noncardiac, likely MSK impingement? 2. HTN urgency: noted SBP at home at times at 175 3. Acquired hypothyroidism: on replacement 4. Chronic AFIB: rate controlled 5. Chronic UTI: positive for pyuria, per PCP 6. 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 Hospital Course: Hospital Course: 84 year old female who was brought here by EMS from her house due to substernal chest pain that radiated to her left arm started this morning. Patient was given 320 mg aspirin and a dose of nitroglycerin by EMS on route. Patient is currently pain-free. Patient was seen at [facility] on Friday night for the same problem, work-up over there did not show any acute problem so she was discharged home. Patient was admitted here on April 19, 2020 for chest pain, work-up including echocardiogram did not show any acute problem, echo show the following conclusion: The left ventricular systolic function is normal and the ejection fraction is within normal range. The Ejection Fraction is 55-60%. Septal motion consistent with conduction abnormality. There is a pacemaker lead in the right ventricle. On day of discharge patient seen by cardiology. Here at the recommendations: 1. May need to see urologist, in regards to chronic UTI and chronic keflex use. Send for culture to note any resistance, defer to PCP 2. No further cardiac workup. Could potentially DC this afternoon 3. Restart home BP med namely lisinopril and cardizem and if BP trend remains elevated then will adjust. HBPM and to call if outside parameter discussed 4. Continue digoxin. will obtain dig level. Eliquis for stroke prevention I agree with the above recommendations and plan. Rest of her hospital course was uneventful. Patient was chest pain-free by the afternoon. Urine cultures are pending and her PCP will need to follow-up on the results. Disposition: Disposition/Orders: D/C to Home Activity: Activity: Resume previous activity Diet: Diet: Cardiac Medications: Home Meds Reported Medications Cephalexin (CEPHALEXIN) 250 Mg Capsule, 250 MG PO DAILY for Chronic UTIs, CAP 06/28/20 Lisinopril (LISINOPRIL) 30 Mg Tablet, 30 MG PO DAILY for FOR HYPERTENSION, #30 TAB 0 Refills 04/18/20 Diltiazem HCl (Diltiazem 24Hr ER (Xr)) 120 Mg Cap.er.deg, 120 MG PO DAILY for heart, CAP.SR 03/08/19 Levothyroxine Sodium (LEVOTHYROXINE SODIUM) 50 Mcg Tablet, 1 TAB PO DAILY for thyroid, #30 TAB 5 Refills 03/08/19 Digoxin (DIGOX) 125 Mcg Tablet, 125 MCG PO DAILY, TAB 08/14/16 [occuvite] No Conflict Check, 1 TAB PO DAILY 08/14/16 [Calcium ] No Conflict Check, 600 MG PO DAILY 12/18/14 Discontinued Reported Medications Apixaban (ELIQUIS) 5 Mg Tablet, 15 MG PO BID for blood thinner, TAB 03/08/19 Scheduled Cephalexin (Cephalexin), 250 MG PO DAILY, (Reported) Digoxin (Digox), 125 MCG PO DAILY, (Reported) Diltiazem HCl (Diltiazem 24Hr ER (Xr)), 120 MG PO DAILY, (Reported) Levothyroxine Sodium (Levothyroxine Sodium), 1 TAB PO DAILY, (Reported) Lisinopril (Lisinopril), 30 MG PO DAILY, (Reported) [Calcium ], 600 MG PO DAILY, (Reported) [occuvite], 1 TAB PO DAILY, (Reported) Discontinued Medications Apixaban (Eliquis), 15 MG PO BID, (Reported) Total Time: Total Time: Total time spent was 35 minutes in preparing scripts, discharge planning with SWI and RN and preparing this discharge summary Patient seen and examined on day of discharge. No acute abnormal findings. Justicifation of Admission Dx: Justifications for Admission: Justification of Admission Dx: Yes Angina: Symp at Rest JANIA KINCAID MD Jun 28, 2020 16:06
== END 2020-06-28 16:25 | disposition home or self-care (01) ==
LOC: ER 05:36 → 2 SOUTH 07:15
PROVIDERS: ADMIT Internal Medicine; ATTEND Internal Medicine
DX: R07.89 Other chest pain (principal); I16.0 Hypertensive urgency; I10 Essential (primary) hypertension; E03.9 Hypothyroidism, unspecified; M19.90 Unspecified osteoarthritis, unspecified site; K62.9 Disease of anus and rectum, unspecified; K59.00 Constipation, unspecified; I48.20 Chronic atrial fibrillation, unspecified; N39.0 Urinary tract infection, site not specified; Z90.710 Acquired absence of both cervix and uterus; Z95.0 Presence of cardiac pacemaker; Z90.49 Acquired absence of other specified parts of digestive tract; Z98.890 Other specified postprocedural states
CPT/HCPCS: 36415; 71045; 80053; 80162; 81001; 83690; 83735; 83880; 84484; 85025; 85610; 85730; 87086; 93005; 97116; 97162; 97165; 99285; G0378; G0379

== ENCOUNTER 2020-09-16 11:42 | Emergency (ER) | payer MEDICARE ==
[~2020-09-16] VITALS: Ht 157.5 cm; Wt 55.0 kg
[2020-09-16 13:04] LABS: BASO % 0 % (0-3); EOS % 0 % (0-3); HEMATOCRIT 43.8 % (36.0-47.0); HEMOGLOBIN 14.7 g/dL (12.0-15.5); LYMPH # 1.2 x10^3/uL (1.0-4.8); LYMPH % 12 % (24-48); MEAN CORPUSCULAR HEMOGLOBIN 32 pg (25-35); MEAN CORPUSCULAR HGB CONC 34 g/dL (31-37); MEAN CORPUSCULAR VOLUME 96 fL (79-100); MONO # 0.8 x10^3/uL (0.0-1.1); MONO % 7 % (0-9); NEUT # 8.4 x10^3/uL (1.8-7.7); NEUT % 81 % (31-73); PLATELET COUNT 181 x10^3/uL (140-400); RED BLOOD COUNT 4.57 x10^6/uL (3.50-5.40); RED CELL DISTRIBUTION WIDTH 14.1 % (11.5-14.5); WHITE BLOOD COUNT 10.4 x10^3/uL (4.0-11.0)
[2020-09-16 13:13] LABS: CREATININE 1.1 mg/dL (0.6-1.0); GFR 47.1; POTASSIUM 4.7 mmol/L (3.5-5.1)
[2020-09-16 13:19] LABS: ALBUMIN 4.2 g/dL (3.4-5.0); ALBUMIN/GLOBULIN RATIO 1.4 (1.0-1.7); TOTAL BILIRUBIN 0.5 mg/dL (0.2-1.0); TOTAL PROTEIN 7.3 g/dL (6.4-8.2)
--- NOTE | 2020-09-16 13:20 | RAD ---
XR CHEST 1V Clinical Indication: Reason: sob / Spl. Instructions: / History: Comparison: AP chest June 28, 2020. Findings: There is left chest single lead pacer. The cardiomediastinal silhouette is normal. Lungs are clear. T here is no pneumothorax. No pleural effusion is appreciated. No acute bone abnormality. Surgical clip s project over the upper trachea, unchanged. IMPRESSION: No acute cardiopulmonary process. Electronically signed by: Leopoldo Orta MD (09/16/2020 1:18 PM) [facility]
--- NOTE | 2020-09-16 13:26 | ED.ADGEN ---
Past Medical History Past Medical History: A-Fib, Hypertension, Hypothyroid, Other Additional Past Medical Histor: RECTAL PROLAPSE Past Surgical History: Hysterectomy, Pacemaker, Tonsillectomy Additional Past Surgical Histo: MASTOIDECTOMY, RECTAL, FATTY TUMOR, THYROID Smoking Status: Never Smoker Alcohol Use: None Drug Use: None General Adult EDM: Chief Complaint: HEADACHE HPI: HPI: Patient is an 84-year-old female who presents to the emergency room after having a presyncopal episode upstairs. Patient's is admitted to the hospital. She was helping him do his physical therapy by pulling his machine forward as he walked down the hallway. She states that they got back to the room and she suddenly felt lightheaded. She saw stars got blurred vision, got diffuse pain in her head, neck, shoulders. This lasted a couple of minutes. She now feels completely back to normal. She states she has not been eating or drinking as much as normal as her 's been in the hospital. She denies any current chest pain or shortness of breath. She has not been ill recently. Review of Systems: Review of Systems: Complete ROS is negative unless otherwise documented in HPI Current Medications: Current Medications Medications (Trade) Dose Ordered Sig/Roman Start Time Stop Time Status Last Admin Dose Admin Sodium Chloride 1,000 ml @ 1,000 mls/hr 1X ONCE 09/16/20 14:30 09/16/20 15:29 09/16/20 14:35 1,000 MLS/HR Allergies: Allergies: Allergies Coded Allergies Type Severity Reaction Last Updated Verified ciprofloxacin Allergy Mild 07/21/14 Yes hydrocortisone Allergy Mild 07/21/14 Yes sulfamethoxazole Allergy Mild 07/21/14 Yes trimethoprim Allergy Mild 07/21/14 Yes Physical Exam: PE: General: Awake, alert, NAD. Well Nourished, well hydrated. Cooperative HEENT: Atraumatic, EOMI, PERRL, airway patent, moist oral mucosa Neck: Supple, trachea midline Respiratory: CTA bilaterally, normal effort, no wheezing/crackles CV: RRR, no murmur, cap refill <2 GI: Soft, nondistended, nontender, no masses MSK: No obvious deformities Skin: Warm, dry, intact Neuro: A&O x3, speech NL, 5/5 strength in BUE/BLE distally and proximally, CN 2- 12 intact, cerebellar testing normal Psych: Normal affect, normal mood, not suicidal or homicidal Current Patient Data: Labs: Laboratory Tests Test 09/16/20 12:15 09/16/20 12:18 09/16/20 13:40 White Blood Count 10.4 x10^3/uL (4.0-11.0) Red Blood Count 4.57 x10^6/uL (3.50-5.40) Hemoglobin 14.7 g/dL (12.0-15.5) Hematocrit 43.8 % (36.0-47.0) Mean Corpuscular Volume 96 fL (79-100) Mean Corpuscular Hemoglobin 32 pg (25-35) Mean Corpuscular Hemoglobin Concent 34 g/dL (31-37) Red Cell Distribution Width 14.1 % (11.5-14.5) Platelet Count 181 x10^3/uL (140-400) Neutrophils (%) (Auto) 81 % (31-73) H Lymphocytes (%) (Auto) 12 % (24-48) L Monocytes (%) (Auto) 7 % (0-9) Eosinophils (%) (Auto) 0 % (0-3) Basophils (%) (Auto) 0 % (0-3) Neutrophils # (Auto) 8.4 x10^3/uL (1.8-7.7) H Lymphocytes # (Auto) 1.2 x10^3/uL (1.0-4.8) Monocytes # (Auto) 0.8 x10^3/uL (0.0-1.1) Eosinophils # (Auto) 0.0 x10^3/uL (0.0-0.7) Basophils # (Auto) 0.0 x10^3/uL (0.0-0.2) Sodium Level 142 mmol/L (136-145) Potassium Level 4.7 mmol/L (3.5-5.1) Chloride Level 105 mmol/L (98-107) Carbon Dioxide Level 29 mmol/L (21-32) Anion Gap 8 (6-14) Blood Urea Nitrogen 25 mg/dL (7-20) H Creatinine 1.1 mg/dL (0.6-1.0) H Estimated GFR (Cockcroft-Gault) 47.1 BUN/Creatinine Ratio 23 (6-20) H Glucose Level 97 mg/dL (70-99) Calcium Level 10.0 mg/dL (8.5-10.1) Total Bilirubin 0.5 mg/dL (0.2-1.0) Aspartate Amino Transferase (AST) 25 U/L (15-37) Alanine Aminotransferase (ALT) 34 U/L (14-59) Alkaline Phosphatase 71 U/L (46-116) Troponin I Quantitative < 0.017 ng/mL (0.000-0.055) Total Protein 7.3 g/dL (6.4-8.2) Albumin 4.2 g/dL (3.4-5.0) Albumin/Globulin Ratio 1.4 (1.0-1.7) Glucose (Fingerstick) 107 mg/dL (70-99) H Urine Color Yellow Urine Clarity Clear Urine pH 5.5 (<5.0-8.0) Urine Specific [place] 1.015 (1.000-1.030) Urine Protein Negative mg/dL (NEG-TRACE) Urine Glucose (UA) Negative mg/dL (NEG) Urine Ketones (Stick) Trace mg/dL (NEG) Urine Blood Negative (NEG) Urine Nitrite Negative (NEG) Urine Bilirubin Negative (NEG) Urine Urobilinogen Dipstick 0.2 mg/dL (0.2 mg/dL) Urine Leukocyte Esterase Negative (NEG) Urine RBC 0 /HPF (0-2) Urine WBC Occ /HPF (0-4) Urine Squamous Epithelial Cells Mod /LPF Urine Bacteria 0 /HPF (0-FEW) Urine Hyaline Casts Few /HPF Urine Mucus Mod /LPF Laboratory Tests 09/16/20 12:15 Laboratory Tests 09/16/20 12:15 Vital Signs: Vital Signs Date Time Temp Pulse Resp B/P (MAP) Pulse Ox O2 Delivery O2 Flow Rate FiO2 09/16/20 12:01 97.7 83 16 133/60 (84) 98 Room Air 97.7 EKG: EKG: [] Heart Score: C/O Chest Pain: N/A Risk Factors: Risk Factors: DM, Current or recent (<one month) smoker, HTN, HLP, family history of CAD, obesity. Risk Scores: Score 0 - 3: 2.5% MACE over next 6 weeks - Discharge Home Score 4 - 6: 20.3% MACE over next 6 weeks - Admit for Clinical Observation Score 7 - 10: 72.7% MACE over next 6 weeks - Early Invasive Strategies Radiology/Procedures: Radiology/Procedures: [] Course & Med Decision Making: Course & Med Decision Making Pertinent Labs and Imaging studies reviewed. (See chart for details) Patient is an 84-year-old female who presents to the emergency room after having a presyncopal episode. Patient now has no symptoms. She is hemodynamically stable. EKG shows a paced rhythm. Lab work will be done to rule out causes of patient's symptoms. It is possible that she is dehydrated given that she has not been eating or drinking much since her 's been in the hospital. This does not sound like strokelike symptoms. Lab work is unremarkable other than dehydration. Patient was given fluids. She did have a couple episodes where her heart rate would drop into the 30s or 40s and then her pacemaker would bring her back up. We did discuss interrogating her pacemaker, however patient would like to go upstairs to see her . Have discussed with her that she needs to call the ip/mosaic technician first thing Friday. We also discussed that she needs to come back to the emergency room immediately if she has any further symptoms. Patient is asymptomatic at this time. Patient's test results and vitals while in the ED were fully reviewed and discussed with the patient. Patient is stable and at this time does not need admission to the hospital. We have discussed strict return precautions and the importance of following up with their Primary Care Physician. Patient stated understanding and was given an opportunity to ask any questions. Patient is in agreement with plan. Nicolas Disclaimer: Nicolas Disclaimer: This electronic medical record was generated, in whole or in part, using a voice recognition dictation system. Departure Departure Impression: Primary Impression: Pre-syncope Disposition: HOME / SELF CARE / HOMELESS Condition: STABLE Referrals: OPHELIA PAINTING APRN (PCP) Patient Instructions: Dizziness SOHA VICTORIA MD Sep 16, 2020 13:26
[2020-09-16 13:53] LABS: BILIRUBIN,URINE NEGATIVE (NEG); CLARITY,URINE CLEAR; COLOR,URINE YELLOW; NITRITE,URINE NEGATIVE (NEG); PH,URINE 5.5 (<5.0-8.0); PROTEIN,URINE NEGATIVE (NEG-TRACE); UROBILINOGEN,URINE 0.2 mg/dL (0.2 mg/dL)
--- NOTE | 2020-09-16 13:54 | EKG ---
[facility] [address] [place] [address] Test Date: 2020-09-16 Test Time: 13:05:52 Pat Name: JOSEPHINE CORONA Department: Room: Gender: F First Front Ventilator: : 1935 Requested By: SOHA VICTORIA Order Number: [id number] Reading MD: Measurements Intervals [place] Rate: 76 P: 0 UT: 332 QRS: -77 QRSD: 146 T: 105 QT: 400 QTc: 455 Interpretive Statements SINUS RHYTHM ATRIAL PREMATURE COMPLEX(ES) PROLONGED UT INTERVAL ABNORMAL LEFT AXIS DEVIATION NON SPECIFIC INTRAVENTRICULAR BLOCK ABNORMAL ECG RI6.02 No previous ECG available for comparison
[2020-09-16 14:13] LABS: BACTERIA,URINE 0 /HPF (0-FEW); HYALINE CASTS, URINE FEW /HPF; RBC,URINE 0 /HPF (0-2); WBC,URINE OCC /HPF (0-4)
[2020-09-16] MEDS ORDERED: IV NORMAL SALINE 1000ML BAG 1,000 ML IV ONE (14:30)
[2020-09-16 15:12] VITALS: BP 179/79
== END 2020-09-16 15:30 | disposition home or self-care (01) ==
LOC: ER 11:42
DX: R55 Syncope and collapse (principal); H53.8 Other visual disturbances; I48.91 Unspecified atrial fibrillation; I10 Essential (primary) hypertension; E03.9 Hypothyroidism, unspecified; Z95.0 Presence of cardiac pacemaker
CPT/HCPCS: 36415; 71045; 80053; 81001; 82962; 84484; 85025; 93005; 96360; 99285; J7030

== ENCOUNTER 2020-10-17 01:53 | Emergency (ER) | payer MEDICARE ==
--- NOTE | 2020-10-17 08:00 | RAD ---
XR CHEST 1V INDICATION: CHEST PAIN / Spl. Instructions: / History: . COMPARISON STUDY: 09/16/2020. FINDINGS: Left pectoral pacemaker Lungs: Hyperexpanded lung volume. No pulmonary mass or consolidation. The tracheobronchial tree and h ilar structures are normal. Pleura: No pleural effusion or pneumothorax. Heart and Mediastinum: Cardiomegaly. Atherosclerosis of the thoracic aorta. IMPRESSION: No consolidation. Electronically signed by: Luis Penaloza MD (10/17/2020 7:58 AM) [id number]
[2020-10-17 08:26] LABS: WHITE BLOOD COUNT 6.7 x10^3/uL (4.0-11.0)
[2020-10-17 08:27] LABS: BASO % 1 % (0-3); EOS % 3 % (0-3); HEMOGLOBIN 13.1 g/dL (12.0-15.5); LYMPH % 31 % (24-48); MEAN CORPUSCULAR HEMOGLOBIN 32 pg (25-35); MEAN CORPUSCULAR HGB CONC 34 g/dL (31-37); MEAN CORPUSCULAR VOLUME 96 fL (79-100); MONO % 9 % (0-9); NEUT % 57 % (31-73); PLATELET COUNT 153 x10^3/uL (140-400); RED BLOOD COUNT 4.05 x10^6/uL (3.50-5.40); RED CELL DISTRIBUTION WIDTH 13.6 % (11.5-14.5)
[2020-10-17 08:47] LABS: ALBUMIN 3.6 g/dL (3.4-5.0); CALCIUM 9.3 mg/dL (8.5-10.1); CREATININE 1.2 mg/dL (0.6-1.0); GFR 42.5; POTASSIUM 4.2 mmol/L (3.5-5.1); TOTAL BILIRUBIN 0.1 mg/dL (0.2-1.0); TOTAL PROTEIN 7.1 g/dL (6.4-8.2)
== END 2020-10-17 04:00 | disposition home or self-care (01) ==
LOC: ER 01:53
DX: R07.89 Other chest pain (principal); M79.671 Pain in right foot; M79.672 Pain in left foot
CPT/HCPCS: 36415; 71045; 80053; 84484; 85025; 93005; 99285-25

== ENCOUNTER 2020-10-22 01:47 | Emergency (ER) | payer MEDICARE ==
[~2020-10-22] VITALS: Ht 154.9 cm; Wt 46.8 kg
--- NOTE | 2020-10-22 03:12 | EKG ---
[facility] [address] [place] [address] Test Date: 2020-10-22 Test Time: 02:57:07 Pat Name: JOSEPHINE CORONA Department: Room: Gender: F It Intern: : 1935 Requested By: BAUDILIO FERNANDEZ Order Number: [id number] Reading MD: Measurements Intervals [place] Rate: 81 P: MT: QRS: -84 QRSD: 144 T: 108 QT: 368 QTc: 433 Interpretive Statements IRREGULAR RHYTHM, NO P-WAVE FOUND ABNORMAL LEFT AXIS DEVIATION NON SPECIFIC INTRAVENTRICULAR BLOCK QRS(T) CONTOUR ABNORMALITY CONSISTENT WITH SEPTAL INFARCT PROBABLY OLD ABNORMAL ECG RI6.01 No previous ECG available for comparison
--- NOTE | 2020-10-22 03:12 | EKG ---
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
[2020-10-22] MEDS ORDERED: ALPRAZolam 0.25 MG TABLET PO ONE ×2 (03:30→04:00)
[2020-10-22 03:55] LABS: BASO % 1 % (0-3); EOS # 0.1 x10^3/uL (0.0-0.7); EOS % 1 % (0-3); HEMATOCRIT 38.9 % (36.0-47.0); HEMOGLOBIN 13.1 g/dL (12.0-15.5); LYMPH # 1.2 x10^3/uL (1.0-4.8); LYMPH % 21 % (24-48); MEAN CORPUSCULAR HEMOGLOBIN 33 pg (25-35); MEAN CORPUSCULAR HGB CONC 34 g/dL (31-37); MEAN CORPUSCULAR VOLUME 97 fL (79-100); MONO # 0.5 x10^3/uL (0.0-1.1); MONO % 9 % (0-9); NEUT % 68 % (31-73); PLATELET COUNT 166 x10^3/uL (140-400); RED BLOOD COUNT 4.02 x10^6/uL (3.50-5.40); WHITE BLOOD COUNT 5.8 x10^3/uL (4.0-11.0)
--- NOTE | 2020-10-22 04:01 | RAD ---
XR CHEST 1V INDICATION: Reason: palpitations, anxiety / Spl. Instructions: / History: . COMPARISON STUDY: None. FINDINGS: Left pectoral pacemaker. Lungs: Normal lung volume. No pulmonary mass or consolidation. The tracheobronchial tree and hilar st ructures are normal. Pleura: No pleural effusion or pneumothorax. Heart and Mediastinum: The cardiomediastinal silhouette is normal. Atherosclerotic thoracic aorta. IMPRESSION: No acute cardiopulmonary process. Electronically signed by: Luis Penaloza MD (10/22/2020 3:59 AM) [facility]
[2020-10-22 04:23] LABS: CALCIUM 9.5 mg/dL (8.5-10.1); CREATININE 1.2 mg/dL (0.6-1.0); GFR 42.5; POTASSIUM 4.5 mmol/L (3.5-5.1)
[2020-10-22 04:28] LABS: ALBUMIN/GLOBULIN RATIO 1.2 (1.0-1.7); MAGNESIUM 2.3 mg/dL (1.8-2.4); TOTAL BILIRUBIN 0.4 mg/dL (0.2-1.0); TOTAL PROTEIN 7.3 g/dL (6.4-8.2)
[2020-10-22 04:42] VITALS: BP 136/70
[2020-10-22] MEDS ORDERED: HYDR25TA PO (05:01)
--- NOTE | 2020-10-22 05:01 | PHYS DOC ---
Past Medical History Past Medical History: A-Fib, Hypertension, Hypothyroid, Other Additional Past Medical Histor: RECTAL PROLAPSE Past Surgical History: Other Additional Past Surgical Histo: MASTOIDECTOMY, RECTAL, FATTY TUMOR, THYROID Smoking Status: Never Smoker Alcohol Use: None Drug Use: None General Adult EDM: Chief Complaint: ANXIETY/PANIC ATTACK HPI: HPI: 85-year-old female past medical history of hypothyroidism, hypertension, A. fib with pacemaker, presents the ED with complaints of "I can't stop, I just shake and breath heavy," for the past two days (while she moves both arms up and down), no relief with 1-2 tablets of Advil. States she has been stressed out about her 's health who was recently diagnosed with cancer of the brain and is receiving radiation/chemo. currently admitted to [facility] currently for her suicidal thoughts. Stress has worsened since Friday. Does not take any medications for anxiety or depression. Is been to her for 67 years. Denies any suicidal homicidal ideations. Does not drink alcohol. Review of Systems: Review of Systems: Constitutional: Denies fever or chills. [] Eyes: Denies change in visual acuity. [] HENT: Denies nasal congestion or sore throat. [] Respiratory: Denies cough or shortness of breath. [] Cardiovascular: Denies chest pain or edema. [] GI: Denies abdominal pain, nausea, vomiting, or diarrhea. [] : Denies dysuria or hematuria Musculoskeletal: Denies back pain or joint pain. [] Integument: Denies rash or blistering lesions Neurologic: Denies headache, focal weakness or sensory changes. [] Endocrine: Denies polyuria or polydipsia. [] Lymphatic: Denies swollen glands. [] Psychiatric: Denies depression or suicidal ideations Heart Score: C/O Chest Pain: No Risk Factors: Risk Factors: DM, Current or recent (<one month) smoker, HTN, HLP, family history of CAD, obesity. Risk Scores: Score 0 - 3: 2.5% MACE over next 6 weeks - Discharge Home Score 4 - 6: 20.3% MACE over next 6 weeks - Admit for Clinical Observation Score 7 - 10: 72.7% MACE over next 6 weeks - Early Invasive Strategies Current Medications: Current Medications Medications (Trade) Dose Ordered Sig/Roman Start Time Stop Time Status Last Admin Dose Admin Alprazolam (Xanax) 0.25 mg 1X ONCE 10/22/20 04:00 10/22/20 04:01 DC Allergies: Allergies: Allergies Coded Allergies Type Severity Reaction Last Updated Verified ciprofloxacin Allergy Mild 07/21/14 Yes hydrocortisone Allergy Mild 07/21/14 Yes sulfamethoxazole Allergy Mild 07/21/14 Yes trimethoprim Allergy Mild 07/21/14 Yes Physical Exam: PE: Constitutional: Well developed, well nourished, no acute distress, non-toxic appearance. HENT: Normocephalic, atraumatic, Eyes: EOMI, conjunctiva normal, no discharge. Neck: Normal range of motion, supple, Cardiovascular: S1/2 present, irregular rhythm-paced on monitor Lungs & Thorax: Speaking in full sentences, bilateral equal chest rise, no tachypnea or increased work of breathing Skin: Warm, dry, Extremities: No tenderness, no cyanosis, no tremors Neurologic: Alert and oriented X 3, no focal deficits noted. [] Psychologic: Affect normal, judgement normal, mood normal-hides nervousness/stress/anxiety well (suspect embarrassment), later laughs-tells stories regarding her Current Patient Data: Labs: Laboratory Tests Test 10/22/20 03:20 White Blood Count 5.8 x10^3/uL (4.0-11.0) Red Blood Count 4.02 x10^6/uL (3.50-5.40) Hemoglobin 13.1 g/dL (12.0-15.5) Hematocrit 38.9 % (36.0-47.0) Mean Corpuscular Volume 97 fL (79-100) Mean Corpuscular Hemoglobin 33 pg (25-35) Mean Corpuscular Hemoglobin Concent 34 g/dL (31-37) Red Cell Distribution Width 14.0 % (11.5-14.5) Platelet Count 166 x10^3/uL (140-400) Neutrophils (%) (Auto) 68 % (31-73) Lymphocytes (%) (Auto) 21 % (24-48) L Monocytes (%) (Auto) 9 % (0-9) Eosinophils (%) (Auto) 1 % (0-3) Basophils (%) (Auto) 1 % (0-3) Neutrophils # (Auto) 4.0 x10^3/uL (1.8-7.7) Lymphocytes # (Auto) 1.2 x10^3/uL (1.0-4.8) Monocytes # (Auto) 0.5 x10^3/uL (0.0-1.1) Eosinophils # (Auto) 0.1 x10^3/uL (0.0-0.7) Basophils # (Auto) 0.0 x10^3/uL (0.0-0.2) Sodium Level 133 mmol/L (136-145) L Potassium Level 4.5 mmol/L (3.5-5.1) Chloride Level 98 mmol/L (98-107) Carbon Dioxide Level 26 mmol/L (21-32) Anion Gap 9 (6-14) Blood Urea Nitrogen 33 mg/dL (7-20) H Creatinine 1.2 mg/dL (0.6-1.0) H Estimated GFR (Cockcroft-Gault) 42.5 BUN/Creatinine Ratio 28 (6-20) H Glucose Level 94 mg/dL (70-99) Calcium Level 9.5 mg/dL (8.5-10.1) Magnesium Level 2.3 mg/dL (1.8-2.4) Total Bilirubin 0.4 mg/dL (0.2-1.0) Aspartate Amino Transferase (AST) 22 U/L (15-37) Alanine Aminotransferase (ALT) 24 U/L (14-59) Alkaline Phosphatase 65 U/L (46-116) Troponin I Quantitative < 0.017 ng/mL (0.000-0.055) OX-Ibp-N-Type Natriuretic Peptide 1445 pg/mL (0-449) H Total Protein 7.3 g/dL (6.4-8.2) Albumin 4.0 g/dL (3.4-5.0) Albumin/Globulin Ratio 1.2 (1.0-1.7) Lipase 385 U/L (73-393) Laboratory Tests 10/22/20 03:20 Laboratory Tests 10/22/20 03:20 Vital Signs: Vital Signs Date Time Temp Pulse Resp B/P (MAP) Pulse Ox O2 Delivery O2 Flow Rate FiO2 10/22/20 02:20 98.7 91 18 174/91 98 Room Air 98.7 EKG: EKG: Irregular regular, A. fib at 78 bpm, no axis deviation, unremarkable intervals, T wave inversion 2, 3, aVF and V3, no ST elevations or ST depressions, pt with no chest pain/pressure/tightness/discomfort Radiology/Procedures: Radiology/Procedures: IMAGING REPORT Signed PATIENT: LEONOR MARQUEZ ACCOUNT: [id number] : 11/19/1976 LOCATION: ER AGE: 43 SEX: M EXAM STATUS: REG ER ORD. PHYSICIAN: BAUDILIO FERNANDEZ DO REASON: cp, soa, r/o pe;OMNI 350, 100ML PROCEDURE: CT ANGIOGRAPHY CHEST CTA CHEST INDICATION: cp, soa, r/o pe Comparison: None. TECHNIQUE: Following the uneventful administration of intravenous contrast, 100 cc Omnipaque 350, axial CT sections were obtained through the lungs and upper abdomen. Multiplanar reconstructions and MIP images were obtained. PQRS compliance statement: One or more of the following individualized dose reduction techniques were utilized for this examination: 1. Automated exposure control 2. Adjustment of the mA and/or kV according to patient size 3. Use of iterative reconstruction technique FINDINGS: Pulmonary arteries: No evidence of pulmonary thromboembolic disease. Lungs and Airways: No pulmonary mass or consolidation. No abnormality of the central airways. Pleura: The pleural spaces are normal. Heart and Mediastinum: The visualized thyroid is normal in size and attenuation. No axillary or supraclavicular lymphadenopathy. No mediastinal, hilar or retrocrural lymphadenopathy. The heart and pericardium are within normal limits. The great vessels of the thorax are normal. Abdomen: Limited images through the upper abdomen show no abnormality of the visualized organs. Bones and Soft Tissues: Degenerative changes of the spine. IMPRESSION: 1. No evidence of pulmonary thromboembolic disease. 2. No pulmonary mass or consolidation. Electronically signed by: Jaren Penaloza MD (10/22/2020 2:28 AM) [facility] DICTATED and SIGNED BY: JAREN PENALOZA MD DATE: 10/22/20 [id number] 0 Course & Med Decision Making: Course & Med Decision Making Pertinent Labs and Imaging studies reviewed. (See chart for details) Concern for anxiety and increased stress regarding health of and recent hospitalization. Stress/improved with Ativan given in the ED. Labs show a slightly elevated creatinine, consistent with prior for the past month. Nonspecific elevation in BNP. Patient with no chest pain or difficulties breathing. Will discharge home with strict ED return precautions were given for homicidal or suicidal ideations, chest pain, increased work of breathing or syncope. Encouraged urgent outpatient follow-up with PMD and psychiatry as needed. Life-threatening processes were considered but are low suspicion at this time, given history, physical exam and ED workup. Pt was educated on all prescription medications and adverse effects. All patient's questions were answered and pt was stable at time of discharge. Life/limb-threatening differential includes but is not limited to, end organ damage/sepsis, trauma/abuse/neglect, neurologic deficit, alcohol/drug ingestion, toxidrome, suicidal/homicidal ideations plans or attempts, psychosis or mental illness resulting in self neglect and inability to care for self. I have spoken with the patient and/or caregivers. I explained the patient's condition, diagnoses and treatment plan based on the information available to me at this time. I have answered the patient and/or caregiver's questions and addressed any concerns. The patient and/or caregivers have a good understanding of patient's diagnosis, condition and treatment plan as can be expected at this point. Vital signs have been stable. Patient's condition is stable and appropriate for discharge from the emergency department. Patient will pursue further outpatient evaluation with primary care physician or other designated or consulting physician as outlined in the discharge instructions. The patient and/or caregivers are agreeable to this plan of care and follow-up instructions have been explained in detail. The patient and/or caregivers have received these instructions in written form and have expressed an understanding of the discharge instructions. The patient and/or caregivers are aware that any significant change of condition or worsening of symptoms should prompt immediate return to this or the closest emergency department or call to 911. Nicolas Disclaimer: Nicolas Disclaimer: This electronic medical record was generated, in whole or in part, using a voice recognition dictation system. Departure Departure Impression: Primary Impression: Anxiety Disposition: 01 HOME / SELF CARE / HOMELESS Condition: STABLE Referrals: OPHELIA PAINTING APRN (PCP) Patient Instructions: Anxiety and Panic Attacks Additional Instructions: FOLLOW UP WITH PSYCHIATRY: FOR DEFINITIVE MANAGEMENT of anxiety Dr. Oni Hooks Psychiatry Specialist [address] [place], [place] [address] EMERGENCY DEPARTMENT GENERAL DISCHARGE INSTRUCTIONS Thank you for coming to [facility] Emergency Department (ED) today and trusting us with you care. We trust that you had a positive experience in our Emergency Department. If you wish to speak to the department management, you may call the Director at [phone]. YOUR FOLLOW UP INSTRUCTIONS ARE FOLLOWS: 1. Do you have a private Doctor? If you do not have a private doctor, please ask for a resource list of physicians or clinics that may be able to assist you with follow up care. 2. The Emergency Physicain has interpreted your x-rays. The X-Ray specialist will also review them. If there is a change in the findings, you will be notified in 48 hours when at all possible. 3. A lab test or culture has been done, your results will be reviewed and you will be notified if you need a change in treatment. ADDITIONAL INSTRUCTIONS AND INFORMATION: 1. Your care today has been supervised by a physician who is specially trained in emergency care. Many problems require more than one evaluation for a complete diagnosis and treatment. We recommend that you schedule your follow up appointment as recommended to ensure complete treatment of you illness or injury. If you are unable to obtain follow up care and continue to have a problem, or if your condition worsens, we recommend that you return to the ED. 2. We are not able to safely determine your condition over the phone nor are we able to give sound medical advice over the phone. For these safety reasons, if you call for medical advice we will ask you to come to the ED for further evaluation. 3. If you have any questions regarding these discharge instructions please call the ED at [phone]. SAFETY INFORMATION: In the interest of safety, wellness, and injury prevention; we encourage you to wear your sealbelt, if you smoke; quite smoking, and we encourage family to use a protective helmet for bicycling and other sporting events that present an increased risk for head injury. IF YOUR SYMPTOMS WORSEN OR NEW SYMPTOMS DEVELOP, OR YOU HAVE CONCERNS ABOUT YOUR CONDITION; OR IF YOUR CONDITION WORSENS WHILE YOU ARE WAITING FOR YOUR FOLLOW UP APPOINTMENT; EITHER CONTACT YOUR PRIMARY CARE DOCTOR, THE PHYSICIAN WHOSE NAME AND NUMBER YOU WERE GIVEN, OR RETURN TO THE ED IMMEDIATELY. Scripts Hydroxyzine Hcl (HYDROXYZINE HCL) 25 Mg Tablet 1 TAB PO TID PRN for anxiety or insomnia, #20 TAB Prov: BAUDILIO FERNANDEZ DO 10/22/20 BAUDILIO FERNANDEZ DO Oct 22, 2020 05:01
== END 2020-10-22 05:23 | disposition home or self-care (01) ==
LOC: ER 01:47
DX: F41.9 Anxiety disorder, unspecified (principal); I10 Essential (primary) hypertension; E03.9 Hypothyroidism, unspecified; I48.91 Unspecified atrial fibrillation; Z95.0 Presence of cardiac pacemaker; Z88.1 Allergy status to other antibiotic agents; Z88.2 Allergy status to sulfonamides; Z88.8 Allergy status to other drugs, medicaments and biological substances
CPT/HCPCS: 36415; 71045; 80053; 83690; 83735; 83880; 84484; 85025; 93005; 99285-25

== ENCOUNTER 2020-11-14 02:55 | Observation (INO) | payer MEDICARE ==
[~2020-11-14] VITALS: Ht 154.9 cm; Wt 40.9 kg
[~2020-11-14 02:55] MED LIST changes: +HYDR25TA PO
[2020-11-14 03:29] LABS: BASO % 1 % (0-3); EOS # 0.1 x10^3/uL (0.0-0.7); EOS % 2 % (0-3); HEMOGLOBIN 11.5 g/dL (12.0-15.5); LYMPH # 0.9 x10^3/uL (1.0-4.8); LYMPH % 21 % (24-48); MEAN CORPUSCULAR HEMOGLOBIN 33 pg (25-35); MEAN CORPUSCULAR HGB CONC 34 g/dL (31-37); MEAN CORPUSCULAR VOLUME 97 fL (79-100); MONO # 0.5 x10^3/uL (0.0-1.1); MONO % 11 % (0-9); NEUT # 2.7 x10^3/uL (1.8-7.7); NEUT % 65 % (31-73); PLATELET COUNT 176 x10^3/uL (140-400); RED BLOOD COUNT 3.51 x10^6/uL (3.50-5.40); RED CELL DISTRIBUTION WIDTH 14.2 % (11.5-14.5); WHITE BLOOD COUNT 4.2 x10^3/uL (4.0-11.0)
[2020-11-14 03:44] LABS: CALCIUM 8.9 mg/dL (8.5-10.1); GFR 52.4; POTASSIUM 4.6 mmol/L (3.5-5.1)
--- NOTE | 2020-11-14 04:09 | PHYS DOC ---
Past Medical History Past Medical History: A-Fib, Hypertension, Hypothyroid, Other Additional Past Medical Histor: RECTAL PROLAPSE Past Surgical History: Other Additional Past Surgical Histo: MASTOIDECTOMY, RECTAL, FATTY TUMOR, THYROID Smoking Status: Never Smoker Alcohol Use: None Drug Use: None General Adult EDM: Chief Complaint: CHEST PAIN Problems: (1) Chest pain HPI: HPI: 85-year-old female with a history of A. fib, status post pacemaker placement, hypothyroid, hypertension presents to the emergency department complaining of chest pain which feels like her chest is "full of air ", she also admits to recent anxiety over her passing over the weekend. She admits to some shortness of air with the chest pain. The patient denies radiation of pain, sweating, nausea, vomiting, palpitations or dizziness. Review of Systems: Review of Systems: Constitutional: Denies fever or chills. Eyes: Denies change in vision, pain. HENT: Denies congestion or sore throat. Respiratory: Denies cough admits to shortness of breath. Cardiovascular: Admits to chest pain, denies edema. GI: Denies abdominal pain, nausea. : Denies change in urination, dysuria. Musculoskeletal: Denies extremity pain, or trauma. Skin: Denies rash, skin change. Neurologic: Denies headache, focal weakness. Psychiatric: Denies depression or anxiety. All other systems reviewed as negative except for what was mentioned in the HPI. Heart Score: C/O Chest Pain: Yes HEART Score for Chest Pain: HEART Score for Chest Pain Response (Comments) Value History Slighlty/Non-Suspicious 0 ECG Nonspecific Repolarizatio 1 Age > 65 2 Risk Factors 1 or 2 Risk Factors 1 Troponin < Normal Limit 0 Total 4 Family History: Family History: Noncontributory Current Medications: My Orders - SEVERINO LONGORIA DO Procedure Category Date Status Time Vital Signs Monitoring ER 11/14/20 Transmitted 03:22 Blood Pressure ER 11/14/20 Transmitted Monitoring 03:22 Cardiac Monitoring ER 11/14/20 Transmitted 03:22 Basic Metabolic Panel LAB 11/14/20 Complete 03:22 Cbc W Autodiff LAB 11/14/20 Complete 03:22 Magnesium LAB 11/14/20 Complete 03:22 Thyroid Stim Hormone LAB 11/14/20 Complete (Tsh) 03:22 Portable Chest 1v RAD 11/14/20 Taken 03:22 Lorazepam Inj (Ativan PHA 11/14/20 Complete Inj) 03:30 Nt-Pro Bnp LAB 11/14/20 Complete 03:22 Troponini LAB 11/14/20 Complete 03:22 Troponini LAB 11/14/20 Logged 06:22 Troponini LAB 11/14/20 Logged 09:22 Allergies: Allergies: Allergies Coded Allergies Type Severity Reaction Last Updated Verified ciprofloxacin Allergy Mild 07/21/14 Yes hydrocortisone Allergy Mild 07/21/14 Yes sulfamethoxazole Allergy Mild 07/21/14 Yes trimethoprim Allergy Mild 07/21/14 Yes Physical Exam: PE: Constitutional: No acute distress, non-toxic appearance. HENT: Atraumatic, bilateral external ears normal, nose normal. Eyes: PERRLA, EOMI, conjunctiva normal, no discharge. Neck: Normal range of motion, supple, no stridor. Cardiovascular: Heart rate regular rhythm. 2+ radial pulses Lungs & Thorax: No respiratory distress, symmetrical expansion. Bilateral neftali ath sounds clear to auscultation Abdomen: Soft, no tenderness Skin: Warm, dry. Extremities: No tenderness, no cyanosis, ROM intact, no edema. Neurologic: Alert and oriented X 3, normal motor function, normal sensory function, no focal deficits noted. Non ataxic gait. GCS 15. Psychologic: Affect normal, judgment normal, mood normal. Current Patient Data: Labs: Laboratory Tests Test 11/14/20 03:20 White Blood Count 4.2 x10^3/uL (4.0-11.0) Red Blood Count 3.51 x10^6/uL (3.50-5.40) Hemoglobin 11.5 g/dL (12.0-15.5) L Hematocrit 34.0 % (36.0-47.0) L Mean Corpuscular Volume 97 fL (79-100) Mean Corpuscular Hemoglobin 33 pg (25-35) Mean Corpuscular Hemoglobin Concent 34 g/dL (31-37) Red Cell Distribution Width 14.2 % (11.5-14.5) Platelet Count 176 x10^3/uL (140-400) Neutrophils (%) (Auto) 65 % (31-73) Lymphocytes (%) (Auto) 21 % (24-48) L Monocytes (%) (Auto) 11 % (0-9) H Eosinophils (%) (Auto) 2 % (0-3) Basophils (%) (Auto) 1 % (0-3) Neutrophils # (Auto) 2.7 x10^3/uL (1.8-7.7) Lymphocytes # (Auto) 0.9 x10^3/uL (1.0-4.8) L Monocytes # (Auto) 0.5 x10^3/uL (0.0-1.1) Eosinophils # (Auto) 0.1 x10^3/uL (0.0-0.7) Basophils # (Auto) 0.0 x10^3/uL (0.0-0.2) Sodium Level 138 mmol/L (136-145) Potassium Level 4.6 mmol/L (3.5-5.1) Chloride Level 103 mmol/L (98-107) Carbon Dioxide Level 28 mmol/L (21-32) Anion Gap 7 (6-14) Blood Urea Nitrogen 21 mg/dL (7-20) H Creatinine 1.0 mg/dL (0.6-1.0) Estimated GFR (Cockcroft-Gault) 52.4 Glucose Level 105 mg/dL (70-99) H Calcium Level 8.9 mg/dL (8.5-10.1) Magnesium Level 2.0 mg/dL (1.8-2.4) Troponin I Quantitative < 0.017 ng/mL (0.000-0.055) ZO-Ubk-O-Type Natriuretic Peptide 1230 pg/mL (0-449) H Thyroid Stimulating Hormone (TSH) 0.472 uIU/mL (0.358-3.74) Laboratory Tests 11/14/20 03:20 Laboratory Tests 11/14/20 03:20 Vital Signs: Vital Signs Date Time Temp Pulse Resp B/P (MAP) Pulse Ox O2 Delivery O2 Flow Rate FiO2 11/14/20 03:00 98.6 77 30 146/74 (92) 98 Room Air 98.6 EKG: EK: Ventricularly paced rhythm rate of 79, no STEM. Impression: Paced rhythm, no STEMI interpreted by meSeverino D.O. compared with previous 06/28/2020 there is no acute change Radiology/Procedures: Radiology/Procedures: No airspace disease, infiltrates or consolidations, lung carey clear. No pneumothorax or pleural effusion. Cardiac silhouette within normal limits. No widening of mediastinum. No obvious free air seen. Pacemaker is in place in the left chest impression: normal CXR. Interpreted by me, Severino Longoria D.O. Course & Med Decision Making: Course & Med Decision Making Patient with heart score 4, we will admit her for observation. She was given some Ativan for anxiety which is likely the cause of her chest pain tonight Departure Departure Impression: Primary Impression: Chest pain Additional Impression: Anxiety Disposition: ADMITTED INPATIENT Condition: STABLE Referrals: OPHELIA PAINTING APRN (PCP) SEVERINO LONGORIA DO Nov 14, 2020 04:09
[2020-11-14] MEDS ORDERED: ACETAMINOPHEN 325 MG TABLET. PO PRN (04:30)
[2020-11-14] MEDS ORDERED: ONDANSETRON PF 4 MG/2 ML VIAL. IVP PRN (04:30)
[2020-11-14] MEDS ORDERED: MORPHINE SULFATE 2 MG/ML INJ. IVP PRN (04:30)
--- NOTE | 2020-11-14 05:51 | RAD ---
Study: XR CHEST 1V Indication: Chest pain. Comparison: 10/22/2020 Findings: Single lead left chest wall pacer. Surgical clips projecting at the thoracic inlet. Unchanged cardiomediastinal silhouette and elvin. No pneumothorax, layering effusion or newly seen foc al airspace abnormality. Osteopenia. Impression: No acute radiographic abnormality of the chest. No change from 10/22/2020. Electronically signed by: JOSE VANEGAS MD (11/14/2020 5:49 AM) [facility]
[2020-11-14] MEDS ORDERED: ENOXAPARIN 30 MG/0.3 ML SYRINGE. SQ SCH (09:00)
--- NOTE | 2020-11-14 12:18 | PDOC2 ---
LUIS MÉNDEZ DIAMOND SANDER 11/14/20 1218: CARDIAC CONSULT DATE OF CONSULT Date of Consult DATE: 11/14/20 TIME: 11:57 REASON FOR CONSULT Reason for Consult: Chest pain REFERRING PHYSICIAN Referring Physician: Von SOURCE Source: Chart review, Patient HISTORY OF PRESENT ILLNESS HISTORY OF PRESENT ILLNESS This patient is an 85 year old female with chronic a-fib and permanent pacemaker placed who presents with chest discomfort. She was sleeping last night and woke up to use the restroom. After returning to bed at midnight, while she was laying down she gradually developed a mild chest discomfort which she describes as feeling like her chest was "filling with air." She got out of bed and walked around the house and the exertion did not make her pain worse. The pain has been intermittent since the onset and she is not aware of any exacerbating or alleviating factors. She did describe some mild radiation into bilateral arms. She denies shortness of breath, nausea, diaphoresis, back pain, or abdominal pain. Prior to last evening she was feeling well and had no fever, cough, diarrhea, urinary symptoms, or flu-like symptoms. She only received one dose of her Moderna vaccine. Her from cancer a few days ago and she admits that this could have been a contributing factor to her symptoms last evening. PAST MEDICAL HISTORY Past Medical History Cardiovascular: AFIB, HTN, Other (SSS/tachy jason syndrome; leg edema) Pulmonary: No pertinent hx CENTRAL NERVOUS SYSTEM: Other (No pertinent history) GI: Constipation, Hemorrhoids Hepatobiliary: No pertinent hx Psych: No pertinent hx Musculoskeletal: Osteoarthritis Rheumatologic: No pertinent hx Infectious disease: No pertinent hx ENT: No pertinent hx Renal/: UTI (chronic ) Endocrine: Hypothyroidism Dermatology: No pertinent hx PAST SURGICAL HISTORY Past Surgical History Pacemaker, Tonsillectomy, Hysterectomy, Other (mastoidectomy; thyroidectomy; rectal prolapse repair) FAMILY HISTORY Family History noncontributory to CV SOCIAL HISTORY Smoke: No ALCOHOL: none Drugs: None Lives: Alone CURRENT MEDICATIONS CURRENT MEDICATIONS Current Medications Medications (Trade) Dose Ordered Sig/Roman Route PRN Reason Start Time Stop Time Status Last Admin Dose Admin Lorazepam (Ativan Inj) 0.5 mg 1X ONCE IV 11/14/20 03:30 11/14/20 03:31 DC 11/14/20 03:45 Enoxaparin Sodium (Lovenox 30mg Syringe) 30 mg DAILY SQ 8/10/21 09:00 11/14/20 09:13 ALLERGIES ALLERGIES: Coded Allergies: ciprofloxacin (Verified Allergy, Mild, 07/21/14) CAN'T URINATE hydrocortisone (Verified Allergy, Mild, 07/21/14) CAN'T URINATE sulfamethoxazole (Verified Allergy, Mild, 07/21/14) LEG CRAMPS trimethoprim (Verified Allergy, Mild, 07/21/14) LEG CRAMPS ROS Cardiovascular: yes Chest Pain PHYSICAL EXAM General: Alert, Oriented X3, Cooperative, No acute distress HEENT: Atraumatic, PERRLA, EOMI Lungs: Clear to auscultation, Normal air movement Heart: Regular rate, Normal S1, Normal S2, No murmurs Abdomen: Normal bowel sounds, Soft, No tenderness, No masses Extremities: No cyanosis, Other (trace bilateral lower extremity edema) Skin: No rashes, No significant lesion Neuro: Normal speech, Strength at 5/5 X4 ext, Normal tone, Sensation intact Psych/Mental Status: Mental status NL, Mood NL MUSCULOSKELETAL: No joint tenderness, No deformity, Full range of motion without pain VITALS/I&O VITALS/I&O: Vital Signs Date Time Temp Pulse Resp B/P (MAP) Pulse Ox O2 Delivery O2 Flow Rate FiO2 11/14/20 06:27 62 18 138/68 (91) 98 Room Air 11/14/20 03:00 98.6 98.6 LABS Lab: Laboratory Tests Test 11/14/20 03:20 11/14/20 07:09 11/14/20 09:17 White Blood Count 4.2 x10^3/uL (4.0-11.0) Red Blood Count 3.51 x10^6/uL (3.50-5.40) Hemoglobin 11.5 g/dL (12.0-15.5) L Hematocrit 34.0 % (36.0-47.0) L Mean Corpuscular Volume 97 fL (79-100) Mean Corpuscular Hemoglobin 33 pg (25-35) Mean Corpuscular Hemoglobin Concent 34 g/dL (31-37) Red Cell Distribution Width 14.2 % (11.5-14.5) Platelet Count 176 x10^3/uL (140-400) Neutrophils (%) (Auto) 65 % (31-73) Lymphocytes (%) (Auto) 21 % (24-48) L Monocytes (%) (Auto) 11 % (0-9) H Eosinophils (%) (Auto) 2 % (0-3) Basophils (%) (Auto) 1 % (0-3) Neutrophils # (Auto) 2.7 x10^3/uL (1.8-7.7) Lymphocytes # (Auto) 0.9 x10^3/uL (1.0-4.8) L Monocytes # (Auto) 0.5 x10^3/uL (0.0-1.1) Eosinophils # (Auto) 0.1 x10^3/uL (0.0-0.7) Basophils # (Auto) 0.0 x10^3/uL (0.0-0.2) Sodium Level 138 mmol/L (136-145) Potassium Level 4.6 mmol/L (3.5-5.1) Chloride Level 103 mmol/L (98-107) Carbon Dioxide Level 28 mmol/L (21-32) Anion Gap 7 (6-14) Blood Urea Nitrogen 21 mg/dL (7-20) H Creatinine 1.0 mg/dL (0.6-1.0) Estimated GFR (Cockcroft-Gault) 52.4 Glucose Level 105 mg/dL (70-99) H Calcium Level 8.9 mg/dL (8.5-10.1) Magnesium Level 2.0 mg/dL (1.8-2.4) Troponin I Quantitative < 0.017 ng/mL (0.000-0.055) < 0.017 ng/mL (0.000-0.055) < 0.017 ng/mL (0.000-0.055) IV-Cux-J-Type Natriuretic Peptide 1230 pg/mL (0-449) H Thyroid Stimulating Hormone (TSH) 0.472 uIU/mL (0.358-3.74) Laboratory Tests 11/14/20 03:20 Laboratory Tests 11/14/20 03:20 ECHOCARDIOGRAM ECHOCARDIOGRAM <Conclusion> The left ventricular systolic function is normal and the ejection fraction is within normal range. The Ejection Fraction is 55-60%. Septal motion consistent with conduction abnormality. There is a pacemaker lead in the right ventricle. DATE: 04/19/20 [id number] 0 STRESS TEST STRESS TEST Conclusion 1. Regadenoson cardioisotope stress test did not show any evidence of ischemia or infarct. 2. Normal left ventricular systolic function with ejection fraction calculated at 82%. 3. Low risk for cardiac events. ASSESSMENT/PLAN ASSESSMENT/PLAN 1. Atypical chest pain 2. Chronic atrial fibrillation: rate controlled 3. HTN: controlled 4. Hypothyroidism: on replacement 5. PPM: single chamber biotronik. Recent download revealed afib, no HVR, normal device Recommendations 1. Given atypical presentation and normal Trop, can proceed with outpatient nuclear stress test 2. Continue Digoxin and Diltiazem for rate control. low dose Eliquis for stroke prevention 3. Continue Lisinopril/hctz , August DC today FELISHA RILEY MD 11/15/20 1001: CARDIAC CONSULT ASSESSMENT/PLAN ASSESSMENT/PLAN Patient seen and examined 11/14/2020. Agree with BILINGUAL RESEARCH INTERVIEWER's assessment and plan. Chest pain with atypical features and most probably musculoskeletal. Myocardial infarction has been ruled out. Recent pacemaker check showed normal function. Permanent atrial fibrillation rate controlled. Continue Eliquis for stroke prophylaxis. We will consider ischemic evaluation as an outpatient. Thank you for your consultation LUIS MÉNDEZ APRN Nov 14, 2020 12:18 FELISHA RILEY MD Nov 15, 2020 10:01
[2020-11-14] MEDS ORDERED: APIXABAN 2.5 MG TABLET. PO SCH (13:00)
[2020-11-14] MEDS ORDERED: hydrOXYzine 25 MG TABLET PO PRN (15:45)
[2020-11-14] MEDS ORDERED: CEPHALEXIN 250 MG CAPSULE. PO SCH (16:00)
[2020-11-14] MEDS ORDERED: LEVOTHYROXINE 50 MCG TABLET PO SCH (16:00)
[2020-11-14 16:04] VITALS: BP 149/76
[2020-11-15] MEDS ORDERED: DIGOXIN 125 MCG TABLET. PO SCH (09:00)
[2020-11-15] MEDS ORDERED: LISINOPRIL 20 MG TABLET PO SCH (09:00)
--- NOTE | 2020-11-16 11:56 | SSS ---
ADMIT DATE: 11/14/2020 CHIEF COMPLAINT: Chest pain. HISTORY OF PRESENT ILLNESS: The patient is a pleasant elderly female who presented to the ER with chest pain, rates it 7 with associated weakness. I discussed the case with ER physician. We have consulted Cardiology. They are okay with her going home. PAST MEDICAL HISTORY: AFib, hypertension, hypothyroidism, rectal prolapse, mastoidectomy, rectal surgery, fatty tumor removal, thyroid surgery. ALLERGIES: CIPRO, HYDROCORTISONE, SULFA AND TRIMETHOPRIM. FAMILY HISTORY: Coronary artery disease. SOCIAL HISTORY: She does not drink, smoke or take drugs. MEDICATIONS: Reviewed, please refer to the MRAD. REVIEW OF SYSTEMS: GENERAL: No history of weight change, weakness or fevers. SKIN: No bruising, hair changes or rashes. EYES: No blurred, double or loss of vision. NOSE AND THROAT: No history of nosebleeds, hoarseness or sore throat. HEART: She complains of chest pain. No history of palpitations or shortness of breath on exertion. LUNGS: Denies cough, hemoptysis, wheezing or shortness of breath. GASTROINTESTINAL: Denies changes in appetite, nausea, vomiting, diarrhea or constipation. GENITOURINARY: No history of frequency, urgency, hesitancy or nocturia. NEUROLOGIC: Denies history of numbness, tingling, tremor or weakness. PSYCHIATRIC: No history of panic, anxiety or depression. ENDOCRINE: No history of heat or cold intolerance, polyuria or polydipsia. EXTREMITIES: Denies muscle weakness, joint pain, pain on walking or stiffness. PHYSICAL EXAMINATION: VITALS: Within normal limits and are stable. GENERAL: No apparent distress. Alert and oriented. HEENT: Normal cephalic atraumatic, external auditory canals are patent. Eyes: Extraocular muscles are intact, pupils are equally round and reactive to light and accommodation. MUSCULOSKELETAL: Well developed, well nourished, good range of motion. ENDOCRINE: No thyromegaly was palpated. LYMPHATICS: No cervical chain or axillary nodes were noted. HEMATOPOIETIC: No bruising. NECK: Supple, no JVD, no thyromegaly was noted. LUNGS: Clear to auscultation in all lung carey without rhonchi or wheezing. HEART: RRR, S1, S2 present. Peripheral pulses intact, no obvious murmurs were noted. ABDOMEN: Soft, nontender. Positive bowel sounds no organomegaly, normal bowel sounds. EXTREMITIES: Without any cyanosis, clubbing, or edema. Pedal pulses intact, Homans sign is negative. NEUROLOGIC: Normal speech, normal tone. A and O x 3, moves all extremities, no obvious focal deficits. PSYCHIATRIC: Normal affect, normal mood. Stable. SKIN: No ulcerations or rashes, good skin turgor, no jaundice. VASCULAR: Good capillary refill, neurovascular bundle appears to be intact. LABORATORY DATA: Troponin is 0. ASSESSMENT AND PLAN: Resolving atypical chest pain. We will discharge. DISPOSITION: Home. ACTIVITY: As tolerated. DIET: Low sodium. MEDICATIONS: Please see MRAD. Total time [address]: Dilip TID: [id number]
== END 2020-11-14 16:04 | disposition home or self-care (01) ==
LOC: ER 02:55 → ED HOLD 04:07
PROVIDERS: ADMIT Student in an Organized Health Care Education/Training Program; ATTEND Student in an Organized Health Care Education/Training Program
DX: I48.21 Permanent atrial fibrillation (principal); E89.0 Postprocedural hypothyroidism; F41.9 Anxiety disorder, unspecified; I10 Essential (primary) hypertension; Z20.822 Contact with and (suspected) exposure to COVID-19; Z90.710 Acquired absence of both cervix and uterus; Z95.0 Presence of cardiac pacemaker; Z79.01 Long term (current) use of anticoagulants; Z90.89 Acquired absence of other organs
CPT/HCPCS: 36415; 71045; 80048; 83735; 83880; 84443; 84484; 85025; 93005; 96372; 96374; 99285; G0378; J1650; J2060; G0379